=== PATIENT | female | born 1970 | race Caucasian/White ===

== ENCOUNTER 2017-11-30 12:15 | Emergency (ER) | payer OTHER ==
[2017-11-30] MEDS ORDERED: NS 0.9% 1000 ML* 1,000 ML IV ONE (14:44)
[2017-11-30 15:02] LABS: ABS Basophils 0 10^3/ul (0-0.2); ABS Eosinophils 0.5 10^3/ul (0-0.6); ABS Lymphocytes 0.7 10^3/ul (1.0-4.8); ABS Monocytes 0.7 10^3/ul (0-0.8); ABS Neutrophils 5.3 10^3/ul (1.5-7.7); ABS Nucleated RBC 0 10^3/ul; Eosinophil % 6.6 % (0-6); Hematocrit 40 % (35-47); Hemoglobin 14.1 g/dl (12.0-16.0); Lymphocyte % 9.9 % (25-47); Mean Corpuscular HGB Conc 35 g/dl (31-36); Mean Corpuscular Hemoglobin 37 pg (27-31); Mean Corpuscular Volume 105 fL (80-97); Mean Platelet Volume 8.8 um3 (7.4-10.4); Nucleated Red Blood Cells % 0.1; Platelet Count 165 10^3/ul (150-450); Red Cell Distribution Width 14 % (10.5-15); White Blood Count 7.2 10^3/ul (3.5-10.8)
[2017-11-30 15:16] LABS: INR 1.01 (0.77-1.02)
[2017-11-30 15:21] LABS: EGFR Non-African American 87.9 (>60)
--- NOTE | 2017-11-30 15:36 | RAD ---
HISTORY: Chest tightness, dizziness COMPARISONS: December 05, 2009 VIEWS: 1: frontal portable view of the chest at 3:05 PM FINDINGS: LINES AND TUBES: None. CARDIOMEDIASTINAL SILHOUETTE: The cardiomediastinal silhouette is normal for portable technique. PLEURA: The costophrenic angles are sharp. No pleural abnormalities are noted. LUNG PARENCHYMA: The lungs are clear. ABDOMEN: The upper abdomen is clear. There is no subphrenic gas. BONES AND SOFT TISSUES: No bone or soft tissue abnormalities are noted. IMPRESSION: NO ACTIVE CARDIOPULMONARY DISEASE.
[2017-11-30] MEDS ORDERED: Ondansetron ODT TAB* 4 MG ONE (17:20)
[2017-11-30] MEDS ORDERED: Ondansetron ODT TAB* 4 MG PO ONE (17:22)
[2017-11-30] MEDS ORDERED: Al Hydrox/Mg Hydrox/Simet LIQ* 30 ML UDC PO ONE (17:34)
--- NOTE | 2017-11-30 17:41 | ED ---
Kala Culp Tenzin, scribed for Cristian Landrum MD on 11/30/17 at 1502 . Complex/Multi-Sys Presentation - HPI Summary HPI Summary: Pt is a 47 y/o F presenting to ED with c/o tightness around the chest and throat since this morning. She was diagnosed with trichomoniasis a few days ago and she was started on Flagyl two days ago. She was put on Effexor last month. Yesterday, she had a abdominal discomfort and HERNÁNDEZ. She also complains of vaginal discharge. Today, she developed symptoms of dizziness upon standing, malaise, nausea, burning eyes, body aches, and joint aches. She also reports diffuse lower abd pain. Pt denies fever, cough, vomiting, diarrhea, and dysuria. - History Of Current Complaint Chief Complaint: EDAllergicReaction Time Seen by Provider: 11/30/17 14:33 Hx Obtained From: Patient Onset/Duration: Still Present Timing: Constant Severity Currently: Mild Severity Initially: Mild Character: Pressure - around her chest and throat Alleviating Factor(s): couple burped helped her with the tightness pressure she was feeling in her chest Associated Signs And Symptoms: Positive: Abdominal Pain, Back Pain - Allergies/Home Medications Allergies/Adverse Reactions: Allergies Allergy/AdvReac Type Severity Reaction Status Date / Time MS Latex [Latex] Allergy Rash Verified 11/30/17 12:39 AN ANTIPRESSANT Allergy Unknown Uncoded 11/30/17 12:39 Reaction Details Home Medications: Home Medications ALPRAZolam TAB* [Xanax TAB*] 0.25 - 0.5 mg PO BID PRN 11/30/17 [History Confirmed 11/30/17] Cevimeline(NF) [Evoxac(NF)] 30 mg PO DAILY 11/30/17 [History Confirmed 11/30/17] Cod Liver Oil 1 cap PO DAILY 11/30/17 [History Confirmed 11/30/17] Multivitamins/Minerals TAB* [Theragran/minerals TAB*] 1 tab PO DAILY 11/30/17 [ History Confirmed 11/30/17] ValACYclovir (*) [Valtrex 500 mg (*)] 500 mg PO DAILY 11/30/17 [History Confirmed 11/30/17] Venlafaxine EXT RELEASE CAP* [Effexor Xr CAP*] 37.5 mg PO DAILY 11/30/17 [ History Confirmed 11/30/17] metroNIDAZOLE TAB* [Flagyl 250 mg TAB*] 500 mg PO BID 11/30/17 [History Confirmed 11/30/17] PMH/Surg Hx/FS Hx/Imm Hx GI History: Reports: Hx Gastroesophageal Reflux Disease - MINOR Sensory History: Reports: Hx Contacts or Glasses - GLASSES Denies: Hx Hearing Aid Opthamlomology History: Reports: Hx Contacts or Glasses - GLASSES Psychiatric History: Reports: Hx Anxiety - Cancer History Hx Chemotherapy: No Hx Radiation Therapy: No - Surgical History Surgery Procedure, Year, and Place: BREAST AUGMENTATION 1998. WISDOM TEETH REMOVAL Hx Anesthesia Reactions: No Infectious Disease History: No Infectious Disease History: Denies: Traveled Outside the [place] in Last 30 Days - Family History Known Family History: Positive: Hypertension - Social History Alcohol Use: Daily Alcohol Amount: 1 GLASS WINE/NIGHT Substance Use Type: Reports: None Smoking Status (MU): Never Smoked Tobacco Review of Systems Positive: Chills Negative: Sore Throat Positive: Chest Pain - tightness and pressure Negative: Shortness Of Breath, Cough Positive: Abdominal Pain - diffusive tightness around the center and lower abd, Nausea. Negative: Vomiting Positive: discharge. Negative: burning Positive: Myalgia - legs, back and overall body in general Positive: Headache, Weakness All Other Systems Reviewed And Are Negative: Yes Physical Exam - Summary Physical Exam Summary: General: well-appearing, no pain distress Skin: warm, color reflects adequate perfusion, dry Head: normal Eyes: EOMI, EDMOND ENT: normal Neck: supple, nontender Respiratory: CTA, breath sounds present Cardiovascular: RRR Abdomen: soft, nontender Bowel: present Musculoskeletal: normal, strength/ROM intact Neurological: sensory/motor intact, A&O x3 Psychological: affect/mood appropriate Triage Information Reviewed: Yes Vital Signs On Initial Exam: Initial Vitals Temp Pulse Resp BP Pulse Ox 98.4 F 74 18 112/68 97 11/30/17 12:33 11/30/17 12:33 11/30/17 12:33 11/30/17 12:33 11/30/17 12:33 Vital Signs Reviewed: Yes Diagnostics - Vital Signs Vital Signs Temp Pulse Resp BP Pulse Ox 11/30/17 12:33 98.4 F 74 18 112/68 97 - Laboratory Lab Results: Lab Results 11/30/17 11/30/17 11/30/17 Range/Units 14:52 14:52 14:52 WBC 7.2 (3.5-10.8) 10^3/ul RBC 3.80 L (4.0-5.4) 10^6/ul Hgb 14.1 (12.0-16.0) g/dl Hct 40 (35-47) % MCV 105 H (80-97) fL MCH 37 H (27-31) pg MCHC 35 (31-36) g/dl RDW 14 (10.5-15) % Plt Count 165 (150-450) 10^3/ul MPV 8.8 (7.4-10.4) um3 Neut % (Auto) 74.2 (38-83) % Lymph % (Auto) 9.9 L (25-47) % [place] % (Auto) 9.1 H (0-7) % Eos % (Auto) 6.6 H (0-6) % Baso % (Auto) 0.2 (0-2) % Absolute Neuts (auto) 5.3 (1.5-7.7) 10^3/ul Absolute Lymphs (auto) 0.7 L (1.0-4.8) 10^3/ul Absolute Monos (auto) 0.7 (0-0.8) 10^3/ul Absolute Eos (auto) 0.5 (0-0.6) 10^3/ul Absolute Basos (auto) 0 (0-0.2) 10^3/ul Absolute Nucleated RBC 0 10^3/ul Nucleated RBC % 0.1 INR (Anticoag Therapy) (0.77-1.02) APTT (26.0-36.3) seconds D-Dimer, Quantitative (Less Than 230) ng/mL Sodium 138 L (139-145) mmol/L Potassium 3.9 (3.5-5.0) mmol/L Chloride 103 (101-111) mmol/L Carbon Dioxide 27 (22-32) mmol/L Anion Gap 8 (2-11) mmol/L BUN 9 (6-24) mg/dL Creatinine 0.71 (0.51-0.95) mg/dL Est GFR ( Amer) 113.0 (>60) Est GFR (Non-Af Amer) 87.9 (>60) BUN/Creatinine Ratio 12.7 (8-20) Glucose 87 (70-100) mg/dL Lactic Acid 0.6 (0.5-2.0) mmol/L Calcium 9.3 (8.6-10.3) mg/dL Magnesium 1.8 L (1.9-2.7) mg/dL Total Bilirubin 0.90 (0.2-1.0) mg/dL AST 18 (13-39) U/L ALT 10 (7-52) U/L Alkaline Phosphatase 31 L (34-104) U/L Total Creatine Kinase 59 (10-223) U/L CK-MB (CK-2) 0.9 (0.6-6.3) ng/mL Troponin I 0.00 (<0.04) ng/mL C-Reactive Protein 6.94 H (< 5.00) mg/L Total Protein 7.6 (6.4-8.9) g/dL Albumin 4.5 (3.2-5.2) g/dL Globulin 3.1 (2-4) g/dL Albumin/Globulin Ratio 1.5 (1-3) Lipase 37 (11.0-82.0) U/L TSH 2.82 (0.34-5.60) mcIU/mL Beta HCG, Quant 0.86 mIU/mL 11/30/17 Range/Units 14:53 WBC (3.5-10.8) 10^3/ul RBC (4.0-5.4) 10^6/ul Hgb (12.0-16.0) g/dl Hct (35-47) % MCV (80-97) fL MCH (27-31) pg MCHC (31-36) g/dl RDW (10.5-15) % Plt Count (150-450) 10^3/ul MPV (7.4-10.4) um3 Neut % (Auto) (38-83) % Lymph % (Auto) (25-47) % [place] % (Auto) (0-7) % Eos % (Auto) (0-6) % Baso % (Auto) (0-2) % Absolute Neuts (auto) (1.5-7.7) 10^3/ul Absolute Lymphs (auto) (1.0-4.8) 10^3/ul Absolute Monos (auto) (0-0.8) 10^3/ul Absolute Eos (auto) (0-0.6) 10^3/ul Absolute Basos (auto) (0-0.2) 10^3/ul Absolute Nucleated RBC 10^3/ul Nucleated RBC % INR (Anticoag Therapy) 1.01 (0.77-1.02) APTT 30.5 (26.0-36.3) seconds D-Dimer, Quantitative 218 (Less Than 230) ng/mL Sodium (139-145) mmol/L Potassium (3.5-5.0) mmol/L Chloride (101-111) mmol/L Carbon Dioxide (22-32) mmol/L Anion Gap (2-11) mmol/L BUN (6-24) mg/dL Creatinine (0.51-0.95) mg/dL Est GFR ( Amer) (>60) Est GFR (Non-Af Amer) (>60) BUN/Creatinine Ratio (8-20) Glucose (70-100) mg/dL Lactic Acid (0.5-2.0) mmol/L Calcium (8.6-10.3) mg/dL Magnesium (1.9-2.7) mg/dL Total Bilirubin (0.2-1.0) mg/dL AST (13-39) U/L ALT (7-52) U/L Alkaline Phosphatase (34-104) U/L Total Creatine Kinase (10-223) U/L CK-MB (CK-2) (0.6-6.3) ng/mL Troponin I (<0.04) ng/mL C-Reactive Protein (< 5.00) mg/L Total Protein (6.4-8.9) g/dL Albumin (3.2-5.2) g/dL Globulin (2-4) g/dL Albumin/Globulin Ratio (1-3) Lipase (11.0-82.0) U/L TSH (0.34-5.60) mcIU/mL Beta HCG, Quant mIU/mL Result Diagrams: 11/30/17 14:52 11/30/17 14:52 Lab Statement: Any lab studies that have been ordered have been reviewed, and results considered in the medical decision making process. - Radiology CXR Xray Interpretation: No Acute Changes Radiology Interpretation Completed By: ED Physician - No acute cardiopulmonary disease. Dr. Landrum interpreted the report. - EKG 14:54 Cardiac Rate: NL - 64 bpm EKG Rhythm: Sinus Rhythm ST Segment: Normal Ectopy: None Complex Multi-Symp Course/Dx Course Of Treatment: DISCUSSED RESULTS WITH PATIENT. SX MOST LIKELY DUE TO METRONIDAZOLE. DISCUSSED FINISHING THE 7 DAYS OF METRONIDAZOLE 500MG PO BID OR TAKING A SINGLE DOSE OF 2 GRAMS ONCE. F/U PMD; RETURN IF WORSE. - Diagnoses Provider Diagnoses: Nausea, Chest pain Discharge - Sign-Out/Discharge Documenting (check all that apply): Discharge/Admit/Transfer - Discharge Plan Condition: Stable Disposition: HOME Prescriptions: Ondansetron ODT TAB* [Zofran 4 MG Odt TAB*] 4 mg PO Q6H PRN #10 tab.odt PRN Reason: Nausea Patient Education Materials: Chest Pain (ED) Referrals: Sd Zabala MD [Primary Care Provider] - Additional Instructions: FOLLOW UP WITH YOUR DOCTOR. TAKE ZOFRAN DIRECTED NEEDED FOR NAUSEA. RETURN TO THE EMERGENCY DEPARTMENT FOR ANY WORSENING OF YOUR CONDITION OR QUESTIONS OR CONCERNS. - Billing Disposition and Condition Condition: STABLE Disposition: HOME The documentation as recorded by the Kala zee Tenzin accurately reflects the service I personally performed and the decisions made by , rCistian Landrum MD.
[2017-11-30 18:12] VITALS: BP 123/76
== END 2017-11-30 18:33 | disposition home or self-care (01) ==
LOC: ED 12:15
DX: R07.9 Chest pain, unspecified (principal); R11.0 Nausea; R10.9 Unspecified abdominal pain; M54.9 Dorsalgia, unspecified
CPT/HCPCS: 36415; 71045; 80053; 82550; 82553; 83605; 83690; 83735; 84443; 84484; 84702; 85025; 85379; 85610; 85730; 86140; 93005; 99284; A9270-GY

== ENCOUNTER 2018-01-31 11:29 | Emergency (ER) | payer OTHER ==
[2018-01-31 11:49] VITALS: BP 120/79
--- NOTE | 2018-01-31 12:04 | ED ---
Throat Pain/Nasal Congestion - HPI Summary HPI Summary: This patient is a 47 year old F presenting to [facility] with a chief complaint of worsening left jaw pain and left facial numbness that started a week ago. The patient rates the pain 2/10 in severity. Patient reports HERNÁNDEZ, jaw pain, numbness , muscle twitches around the mouth, dry eyes, and feeling generally tired. Patient denies rhinorrhea and cough. Pt does not believe she was bitten by a tick recently. Pt gets regular Botox injections, with the most recent being 3 months ago. Pt has not seen these symptoms before. Pt currently takes Evoxac for dry eyes. Rx Valtrex and Effexor. Pt has seen an ENT doctor in the past. - History of Current Complaint Chief Complaint: EDGeneral Time Seen by Provider: 01/31/18 11:38 Hx Obtained From: Patient Onset/Duration: Gradual Onset, Lasting Days - Started a week ago, numbness started today Severity: Moderate Cough: None Related History: Other (Noted In Comments) - Botox - Allergies/Home Medications Allergies/Adverse Reactions: Allergies Allergy/AdvReac Type Severity Reaction Status Date / Time latex Allergy Rash Verified 01/31/18 11:46 AN ANTIPRESSANT Allergy Unknown Uncoded 01/31/18 11:46 Reaction Details PMH/Surg Hx/FS Hx/Imm Hx GI History: Reports: Hx Gastroesophageal Reflux Disease - MINOR Sensory History: Reports: Hx Contacts or Glasses - GLASSES Denies: Hx Hearing Aid Opthamlomology History: Reports: Hx Contacts or Glasses - GLASSES EENT History: Denies: Hx Deafness Psychiatric History: Reports: Hx Anxiety - Cancer History Hx Chemotherapy: No Hx Radiation Therapy: No - Surgical History Surgery Procedure, Year, and Place: BREAST AUGMENTATION 1998. WISDOM TEETH REMOVAL Hx Anesthesia Reactions: No Infectious Disease History: No Infectious Disease History: Denies: Traveled Outside the [place] in Last 30 Days - Family History Known Family History: Positive: Hypertension - Social History Alcohol Use: Daily Alcohol Amount: 1 GLASS WINE/NIGHT Substance Use Type: Reports: None Smoking Status (MU): Never Smoked Tobacco Review of Systems Positive: Fatigue ENT: Other - reported dysesthesia of the upper lip Positive: Other - Dry eyes. Negative: Nasal Discharge Negative: Cough Negative: Abdominal Pain Positive: Other - jaw pain Positive: Headache, Numbness - left side of face Positive: Anxious All Other Systems Reviewed And Are Negative: Yes Physical Exam - Summary Physical Exam Summary: Appearance: No pain distress. Skin: warm, dry, reflects adequate perfusion Head/face: Flattening of the forehead due to Botox. Reported dysesthesia of the upper lip. Smile asymmetry. Minor ptosis. Eyes: EOMI, EDMOND ENT: injection and a dark line through the TM. Small exudative effusion in the middle of the eardrum. Neck: supple, non-tender Respiratory: CTA, breath sounds present Cardiovascular: RRR, pulses symmetrical Abdomen: non-tender, soft Bowel Sounds: present Musculoskeletal: normal, strength/ROM intact Neuro: normal, sensory motor intact, A&Ox3 Triage Information Reviewed: Yes Vital Signs On Initial Exam: Initial Vitals Temp Pulse Resp BP Pulse Ox 98.8 F 68 18 123/71 100 01/31/18 11:30 01/31/18 11:30 01/31/18 11:30 01/31/18 11:30 01/31/18 11:30 Vital Signs Reviewed: Yes Diagnostics - Vital Signs Vital Signs Temp Pulse Resp BP Pulse Ox 01/31/18 11:47 65 100 01/31/18 11:46 65 120/79 100 01/31/18 11:40 65 140/84 100 01/31/18 11:30 98.8 F 68 18 123/71 100 - Laboratory Lab Statement: Any lab studies that have been ordered have been reviewed, and results considered in the medical decision making process. EENT Course/Dx - Course Course Of Treatment: Patient presents with left-sided facial deficit including mild ptosis and asymmetry of smiled. The forehead is not relevant given that she has Botox throughout it. She also has had dysesthesia and discomfort in the face preceding this. 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 Increased her dose of Valtrex, added steroids and doxycycline for possibility of Lyme disease. Lyme serology was obtained here. She'll follow up closely with ear nose and throat. Lacri-Lube was given to use at night. - Differential Diagnoses Differential Diagnoses: Other - CVA, TIA, Fleming's palsy - Diagnoses Provider Diagnoses: Fleming's palsy Discharge - Sign-Out/Discharge Documenting (check all that apply): Patient Departure - Discharge - Discharge Plan Condition: Improved Disposition: HOME Prescriptions: Artificial Tear OPHTH.OINT* [Lacrilube OINT*] 1 applic LEFT EYE BEDTIME #2 tube DOXYcycline CAP(*) [DOXYcycline 100MG CAP(*)] 100 mg PO BID #28 cap predniSONE [Prednisone 20 MG TAB] 40 mg PO DAILY #14 tablet ValACYclovir (*) [Valtrex 1 GM(*)] 1 gm PO TID #21 tab Patient Education Materials: Fleming Palsy (ED) Referrals: Olegario Novoa MD [Medical Doctor] - Sd Zabala MD [Primary Care Provider] - Additional Instructions: Call to follow-up with the ear nose and throat surgeon tomorrow. I have your doctor recheck you earlier in the week also. Return if worse, new symptoms or other concerns. Do not get Botox while you have these symptoms. Use artificial tears throughout the day the affected left eye. - Billing Disposition and Condition Condition: IMPROVED Disposition: Home
== END 2018-01-31 12:03 | disposition home or self-care (01) ==
LOC: ED 11:29
DX: G51.0 Bell's palsy (principal); Z88.8 Allergy status to other drugs, medicaments and biological substances
CPT/HCPCS: 86617; 86618; 99282

== ENCOUNTER 2018-02-06 13:59 | Emergency (ER) | payer OTHER ==
--- OUTSIDE RECORDS SUMMARY | 2018-02-06 14:53 | XMS REPORT ---
:1970 External Reference #:[id number] Author Organization [facility] Address [address] [place] [address] Phone [phone] Care Team Providers Name Role Phone Sd Zabala M.D. Primary Care Physician Unavailable Payers Type Date Identification Numbers Payment Provider Subscriber Commercial Policy Number: [id number] [employer] Ppo/Pos/Epo/Nap [employer] Group Number: [id number] [id number] PayID: [id number] [place] [address] Problems Date Description Provider Status Onset: Rosacea Active Onset: Hiatal hernia Active Onset: Sjogren's syndrome Active Onset: Herpes simplex keratitis Active Onset: Anxiety Active Onset: Fleming's palsy Active Onset: Lyme disease Active Onset: 02/05/2018 Tear film insufficiency Smitha Marshall O.D. Active Onset: 02/05/2018 Punctate keratitis Smitha Marshall O.D. 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 Employment ETOH Use Occasionally consumes alcohol Smoking Patient has never smoked Recreational Drug Use Denies Drug Use Daily Caffeine Consumes on average 2 cups of regular coffee per day Allergies, Adverse Reactions, Alerts Date Description Reaction Status Severity Comments 02/05/2018 NKDA active Medications Medication Date Status Form Strength Qnty SIG Indications Ordering Provider Evoxac Active Capsules 30mg daily Unknown 000 Xanax Active Tablets 0.25mg 1-2 Unknown [address] daily [address]cycline Active Capsules DR 40mg 1 by Unknown 000 mouth every day Prednisone Active Tablets 5mg 2 daily Unknown 000 Valtrex Active Tablets 1gm 1 GM Unknown 000 three times a day Multi Vitamin Active Tablets daily Unknown 000 B12 Folate Active Capsules 800-800mcg daily Unknown 000 B6 Natural Active Tablets 100mg daily Unknown 000 Zinc Active Capsules 30mg daily Unknown 000 Hyaluronic Active daily Unknown Acid 000 Benadryl Active Tablets 25mg as Unknown Allergy 000 needed Systane Active Gel 0.4-0.3% 1 drop Unknown 000 both eyes twice a day Systane Active Solution 0.4-0.3% as Unknown 000 needed Vital Signs Date Vital Result Comment 02/05/2018 BP Systolic 119 mmHg BP Diastolic 69 mmHg Results Description No Information Procedures Date CPT Code Description Status 03/23/2015 605 Cleaning Cloth Completed 03/23/2015 519 Eyeglass It Analyst Completed 05/09/2014 78139 Est Patient Intermediate Exam Completed 01/23/2014 76456 Determination Of Refractive State Completed 01/23/2014 43701 Est Patient Comprehensive Exam Completed 01/23/2014 101 Level 1 SCL Fit/Refit Completed 08/08/2011 61476 Determination Of Refractive State Completed 08/08/2011 01096 Est Patient Comprehensive Exam Completed 08/08/2011 201 Refit - No Change In Fit Completed 03/11/2010 07739 Visual Field Exam Extended Completed 03/04/2010 48013 Determination Of Refractive State Completed 03/04/2010 27038 Est Patient Comprehensive Exam Completed 03/04/2010 201 Refit - No Change In Fit Completed 03/01/2010 96084 Close Lacrimal Punctum, Plug Completed 08/15/2009 33031 Est Patient Intermediate Exam Completed 08/01/2009 03071 Close Lacrimal Punctum, Plug Completed 06/27/2009 16468 Est Patient Intermediate Exam Completed 10/20/2008 98230 Determination Of Refractive State Completed 10/20/2008 58624 Est Patient Comprehensive Exam Completed 10/20/2008 201 Refit - No Change In Fit Completed 02/12/2007 99887 Determination Of Refractive State Completed 02/12/2007 45425 Est Patient Comprehensive Exam Completed 02/12/2007 202 Refit SCL Completed 12/29/2006 85954 Close Lacrimal Punctum, Plug Completed 12/29/2006 39687 Close Lacrimal Punctum, Plug Completed 09/16/2006 80412 Est Patient Intermediate Exam Completed Encounters Type Date Location Provider CPT E/M Dx Office Visit 12/17/2011 10:30a [place], [place] [address] 373.12 pc Office Visit 03/11/2010 11:10a Chet Enrique MD, Smitha Marshall, 88447 V58.69 pc O.D. 710.2 Office Visit 08/24/2009 10:40a Chet Enrique MD, Smitha Marshall, 21709 370.20 pc O.D. Office Visit 08/15/2009 3:20p Chet Enrique MD, Smitha Marshall, 74251 370.20 pc O.D. Office Visit 07/04/2009 3:10p Chet Enrique MD, Smitha Marshall, 19039 370.40 pc O.D. Office Visit 02/02/2007 1:30p Chet Enrique MD, Chet Enrique M.D. 75792 375.15 pc Office Visit 12/18/2006 2:15p Chet Enrique MD, Chet Enrique M.D. 61354 375.15 pc Plan of Care 02/05/2018 - Smitha Marshall O.D.H16.142 Punctate keratitis, left eyeComments:continue to use systane gel at bedtime at systane drops during the dayFollow up:1 Week Follow Up / MR/Cl fit At your next visit, we are not planning to dilate your eyes. However, if you have any changes in your vision or new symptoms, there are certain situations that require us to dilate your eyes. If Dr. Marshall requests any additional testing, that may require extra time. Ifyou have any questions before your next appointment, please call our office at .H04.123 Dry eye syndrome of bilateral lacrimal kctubdT67.0 Fleming's xhnvlF68.01 Sicca syndrome with upbalfejyzehoaloriqoK58.20 Lyme disease, unspecified
--- OUTSIDE RECORDS SUMMARY | 2018-02-06 14:53 | XMS REPORT ---
:1970 External Reference #:[id number] Author Organization [facility] Address [address] [place] [address] Phone [phone] Care Team Providers Name Role Phone Sd Zabala M.D. Care Team Information Remote Computer Terminal Operator Unavailable Sd Zabala M.D. 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 Cigarette Use Never Smoked Cigarettes Cigars current.no Pipe current.no Smokeless Tobacco current.no ETOH Use Negative For Current Alcohol Use [Current Alcohol Use] Allergies, Adverse Reactions, Alerts Date Description Reaction Status Severity Comments 06/04/2010 Sonata V-Tach active 06/04/2010 Zoloft night sweats, increased thirst active 02/04/2018 Latex active Medications Medication Date Status Form Strength Qnty SIG Indications Ordering Provider Xanax / Active Tablets 0.25mg 1tabs take 30 Unknown 0000 minutes before mri Multivitamins 00/00/ Active Unknown 0000 Doxycycline 0000/ Active Capsules 100mg take 1 Unknown Hyclate 0000 capsule by mouth twice a day Prednisone / Active Tablets 20mg take 2 Unknown 0000 tablets by mouth once daily with food Valacyclovir / Active Tablets 1gm take 1 Unknown HCL 0000 tablet by mouth three times a day Alprazolam / Active Tablets 0.25mg take 1 to 2 Unknown 0000 tablets by mouth twice a day if needed [id number] / Active Chewtabs 1mg daily Unknown 0000 B6 Natural / Active Tablets 100mg daily Unknown 0000 Evoxac 00/ Active Capsules 30mg 1 tab daily Unknown 0000 Plaquenil /00/ Hx Tablets 200mg Unknown - 2017 Trazodone HCL /00/ Hx Tablets 50mg Unknown - 2017 Ambien 00/ Hx Tablets 10mg 30tabs 10 mg p.o. Unknown 0000 - q.h.s. 2017 Cod Liver Oil /00/ Hx Unknown - 2017 Evoxac /00/ Hx Unknown 2017 Valtrex / Hx Tablets 500mg Unknown 2017 Lizzie / Hx Tablets 3-0.02mg Unknown 2017 Genteal Gel /00/ Hx Unknown - 2017 Provigil / Hx Tablets 200mg Unknown 2009 Nexium / Hx Capsules 40mg 60caps 1 po bid - Unknown 0000 - DR bid dosing 2018 indicated for her needs Cevimeline HCL / Hx Capsules 30mg take 1 Unknown 0000 - capsule by 02/04/ mouth twice 2018 a day Vital Signs Date Vital Result Comment 02/04/2018 Weight 140.00 lb Weight in kg's 63.504 Height 67 inches 5'7" Height in cm's 170.2 cm BMI (Body Mass Index) 21.9 kg/m2 06/04/2010 BP Systolic 131 mmHg BP Diastolic 78 mmHg Heart Rate 81 /min Respiratory Rate 16 /min Results Description No Information Procedures Date CPT Code Description Status 07/09/2010 52116 Tympanometry Completed 07/09/2010 07968 Comprehensive Audiogram Completed Encounters Type Date Location Provider CPT E/M Dx Office Visit 02/04/2018 3:45p [place],After 07/20/07 [place] [address] G51.0 Office Visit 07/09/2010 3:00p [place],After 07/20/07 Chet Mckinney 23515 388.72 Eric Miner 723.9 780.2 386.2 388.31 279.4 Office Visit 07/05/2010 9:15a [place],After 07/20/07 Chet Miner, 97778 787.20 MDejuan 530.9 710.2 Office Visit 06/04/2010 11:00a [place],After 07/20/07 Chet Miner, 28796 787.24 MDejuan 710.2 787.22 Plan of Care 02/04/2018 - SEBASTIÁN Duke51.0 Fleming's palsyComments:left-sided facial paralysis one week's duration. No evidence of middle ear pathology no palpable abnormality of the salivary gland rest of the cranial nerve function normallyIf there is persistent facial paralysis greater than 3 weeks patient would benefit from an MRI with contrast
--- OUTSIDE RECORDS SUMMARY | 2018-02-06 14:54 | XMS REPORT ---
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 Active Onset: 05/02/2010 Gastroesophageal reflux disease Ez Gray M.D. Active Onset: 05/02/2010 Depressive disorder Ez Gray M.D. Active Onset: 05/02/2010 Collagen disease Ez Gray M.D. Active Onset: 11/12/2011 Disorder of eyelid Sd Zabala M.D. Active Onset: 11/15/2011 Yeny Gusman M.D. Active Onset: 04/26/2015 Insomnia Sd Zabala M.D. Active Onset: 04/26/2015 Excessive and frequent menstruation Sd Zabala M.D. Active Family History Date Family Member(s) Problem(s) Comments Father hypertension, hypercholesterolemia Mother hypertension, hypothyroidism, hypercholesterolemia Number of Children G-2, P-2 First Daughter Unremarkable Second Daughter Unremarkable Number of Siblings Siblings: 4 One sister has depression3 other sisters without health problems Paternal Grandfather due to COPD () - 60's Paternal Grandmother due to Breast Cancer () - with mets. 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 [employer] Cigarette Use Nonsmoker ETOH Use Occasional Smoking Patient has never smoked Daily Caffeine Some Caffeine Exercise Type/Frequency Current Exercises regularly, runs 2 days a week Allergies, Adverse Reactions, Alerts Date Description Reaction Status Severity Comments 09/26/2008 Sonata heart fluttering active 01/14/2010 Sertraline night sweats, thirst active Medications Medication Date Status Form Strength Qnty SIG Indications Ordering Provider Valacyclovir HCL Active Tablets 1gm take 1 N73.9 Marianne 018 tablet by MARITZA Hamlin mouth three times daily for 7 days B00.2 A60.9 Effexor XR 11/24/2017 Active Caps ER 24HR 37.5mg 30caps Take one N95.1 Salome Karina by mouth at [facility], SCIENTIFIC SOFTWARE DEVELOPER night Xanax 04/20/2008 Active Tablets 0.25mg 120tabs 1-2 by F41.1 Sd King mouth tabs Eric Zabala by mouth twice a day as needed F41.3 F41.9 Multivitamins Active Tablets 1 po qd Unknown Fish Oil Active Capsules 1000 1 po qd Unknown mg Evoxac Active Capsules 30mg 60ca take one M35 Sd King ps capsule by .Joanna Zabala M.D. mouth twice a day Doxycycline Active Tablets 100m one tab by Unknown Hyclate g mouth twice a day Prednisone Active Tablets 20mg take 2 by mouth Unknown as one dose daily until gone Metronidazole 11/28/2017 - Hx Tablets 500m 14ta take 1 tablet Marilin 12/02/2017 g bs twice a day for Lizet, HYPERTRICHOLOGIST 7 days Monistat 7 Simply 08/13/2016 - Hx Cream 2% 1Box intravaginal Marianne Cure 07/21/2017 Marlena application MARITZA Hamlin tmen every night x 7 days Fluconazole 05/05/2015 - Hx Tablets 150m 1tab 1 by mouth x 1 Miesha 05/06/2015 g s Brown, SCIENTIFIC SOFTWARE DEVELOPER Silenor 04/26/2015 - Hx Tablets 3mg 30ta 1 by mouth at G47 Sd A. 04/26/2015 bs bedtime .00 Eric Zabala Doxepin HCL 04/26/2015 - Hx Capsules 10mg 90ca take as G47 Sd A. 05/02/2015 ps directed by .00 Eric Zabala physician at bedtime for sleep; start with 10 mg at bedtime and increase as directed Valacyclovir HCL 07/25/2013 - Hx Tablets 500m 60ta take one tablet N73 Marianne 02/02/2018 g bs by mouth twice .9 MARITZA Hamlin a day B00.2 A60.9 Medrol Dosepak 05/25/2013 - Hx Tablets 4mg 1pk take as Marianne 01/05/2014 directed MARITZA Hamlin Zolpidem 09/20/2012 - Hx Tablets 5mg 60tabs 1 -2 by mouth G47.0 Sd A. Tartrate 04/26/2015 every night at 0 Darcatherine, bedtime as M.D. needed Tamiflu 07/26/2012 - Hx Capsules 75mg 10caps 1 po qd x 10 Sd A. 08/05/2012 days Eric Zabala Mupirocin 05/13/2012 - Hx Ointment 2% 22gm apply small Kely 09/21/2012 amount to ronald Rivera, tid x 5 days Afnp-C Zithromax 01/30/2012 - Hx Tablets 250mg 6Tabs 2 po qd Marilin calvin 05/12/2012 then 1 po qd Lizet, times 4 HYPERTRICHOLOGIST Minocycline HCL 01/17/2012 - Hx Capsules 50mg 30caps take one L70.0 Marianne 11/24/2017 capsule by Yakelin mouth at [facility] bedtime Gentamicin 11/15/2011 - Hx Ointment 0.3% 50unit apply small 373.2 Danielle M. Sulfate 01/05/2014 s amount to LaFace, Opthalmic lesion bid for M.D. 1 week Benefiber 11/26/2010 - Hx Chewtabs Sd King 07/17/2011 Eric Zabala Prednisone 11/26/2010 - Hx Tablets 10mg 19tabs 4 po x 2 days, 723.1 Sd King 12/03/2010 then 3 po x 2 Darlow, days, then 2 po M.D. x 2 days,then 1 po x 1 day Soma 11/26/2010 - Hx Tablets 350mg 40tabs 1 po tid prn 723.1 Sd King 07/17/2011 muscle spasm Eric Zabala Physical 11/26/2010 - Hx craniosacral 723.1 Sd King Therapy 12/08/2010 treatment and Sagrario evaluation neck Eric pain Charito 28 07/09/2010 - Hx Tablets 3-0.03 1month take one tablet V72.3 Marianne 12/07/2014 mg by mouth every 1 Yakelin, day as directed HYPERTRICHOLOGIST Hydrocodone/Yang 07/08/2010 - Hx Tablets 5-500m 40tabs 1 po before bed 388.9 Lo A. taminophen 11/26/2010 g or q4-6h prn Eric Umaña pain Gianvi 07/04/2010 - Hx Tabs 3-0.02 28tabs Take as Sd King 11/26/2010 mg Directed Eric Zabala Skelaxin 05/02/2010 - Hx Tablets 800mg 40tabs 1 tid prn Ez Montes 06/03/2010 muscle spasm Eric Gray Nexium 01/15/2010 - Hx Capsules DR 40mg 30caps 1 po bid Sd King 11/26/2010 Eric Zabala Pantoprazole 01/14/2010 - Hx 40mg 90unit 1 po qd 530.8 Sd King 01/15/2010 s 1 Eric Zabala Doxycycline 01/14/2010 - Hx Tablets 50mg 7tabs dissolve in 528.9 Sd A. Monohydrate 01/21/2010 glass of water Darlow, and rinse/spit Jacy.DNoemi four times a day as directed Pristiq 01/14/2010 - Hx Tablets ER 50mg 30tabs 1 qd 311 Sd King 11/26/2010 24HR Eric Zabala Provigil 12/05/2009 - Hx Tablets 200mg 30tabs 1 qd Sd King 07/08/2010 Eric Zabala Trazodone HCL 09/05/2009 - Hx Tablets 50mg 120tab Take 3-4 530.8 Sd ANoemi 01/05/2014 s Tablets By 1 Sagrario Mouth AT M.DNoemi Bedtime 780.52 Tamiflu 05/22/2009 - Hx Capsules 75mg 10caps 1 po bid for 5 465.9 Lo ANoemi 09/05/2009 days Eric Umaña Flagyl 04/20/2009 - Hx Capsules 375mg 14caps 1 po bid x 7d Ro 04/20/2009 Eugenio Perdue Ambien 04/20/2009 - Hx Tablets 10mg 30tabs 1 po q hs prn Sd King 09/20/2012 call nt Eric Zabala Flagyl 04/20/2009 - Hx Tablets 250mg 1 po tid x 7 Ro 09/05/2009 days Eugenio Perdue Cleosin 03/05/2009 - Hx 3units 1 intravaginally 041.9 Marilin Ovules 05/02/2009 qhs x 3 nights Lizet, FNP Diflucan 11/15/2008 - Hx Tablets 150mg 2tabs 1 po times 1 Sd King 01/09/2009, november repeat kailee Zabala 5-7 days Eric Lizzie 10/23/2008 - Hx Tabs 3-0.02 28tabs Use as Directed Sd King 07/04/2010 mg Eric Zabala Zyprexa 10/12/2008 - Hx Tablets 2.5mg 1 po qhs 530.81 Sd ANoemi 10/23/2008 Eric Zabala Trazodone HCL 09/26/2008 - Hx Tablets 25mg 30tabs 1 tablet hs prn Sd King 12/20/2008 for sleep Eric Zabala Omeprazole 09/25/2008 - Hx Capsules 20mg 30caps 1 po qd 535.50 Sd A. 10/12/2008 DR Sagrario M.D. Sonata 09/25/2008 - Hx Capsules 10mg 30caps 1 po qhs prn 530.81 Sd A. 09/26/2008 sleep Eric Zabala Pen VK 09/19/2008 - Hx 500mg 20units 1 bid 462 Sd King 10/12/2008 Eric Zabala Xanax 09/11/2008 - Hx Tablets Sd A. 09/11/2008 Eric Zabala Sertraline 09/11/2008 - Hx 25mg 60units 1 po qd x 1 530.81 Sd ANoemi 10/12/2008 week, then Darlow, increase to 2 po M.D. qd if necessary Xanax 09/11/2008 - Hx Tablets 0.5mg 60tabs 1 bid as Sd King 04/20/2009 directed Eric Zabala sixty Diflucan 09/07/2008 - Hx Tablets 150mg 2tabs 1 po times 1 616.10 Sd A. 09/05/2009 day, november repeat Sagrario, in 5-7d M.D. Terazol 3 09/07/2008 - Hx Cream 0.8% 1Tube one 616.10 Kely 09/10/2008 applicatorful hs Miguel, x 3 days Afnp-C Klonopin 04/21/2008 - Hx Tablets 0.5mg 60tabs 1-2 po hs Marilin 09/07/2008 MARITZA Hinds Valtrex 04/20/2008 - Hx Tablets 500mg 60tabs Take One Tablet 616.9 Sd A. 07/25/2013 By Mouth Twice A Darlow, Day M.D. Compazine 03/22/2008 - Hx Tablets 5mg 12tabs 1-2 po q 6h prn 558.9 Marilin 04/20/2008 nausea/vomiting MARITZA Hinds Ambien 12/18/2007 - Hx Tablets 10mg 30tabs 1 po qhs prn 780.59 Ez TNoemi 09/07/2008 fitz Gray M.D. Cymbalta 06/08/2007 - Hx Capsules 60mg 1 po qd 530.81 Sd King 03/22/2008 Eric Zabala Restoril 05/25/2007 - Hx Capsules 15mg 30caps 1 qhs prn Sd King 12/28/2007 barb Zabala M.D. Cymbalta 05/20/2007 - Hx Capsules 30mg Samples 1 po qd 530.81 Sd King 06/08/2007 Eric Zabala Lunesta 05/20/2007 - Hx Tablets 3mg 30tabs 1 PO QHS 530.81 Sd King 05/25/2007 Eric Zabala Doxycycline 02/04/2007 - Hx Capsules 50mg 1 PO qd Family 12/28/2007 [facility] Cod Liver Oil - Hx Capsules 1 po qd Unknown 07/15/2016 Plaquenil - Hx Tablets 200mg 1 po bid Unknown 11/26/2010 Nexium - Hx Capsules 20mg 90caps 1 po qd Unknown 11/12/2011 Vitamin B-12 - Hx Tablets 1000mc 1 po qd Unknown 12/07/2014 g occassionally Vitamin D - Hx Capsules [id number] take 1 capsule Unknown (Ergocalcifer 07/21/2017 nit by mouth once ol) weekly for 12 weeks. Immunizations CPT Code Status Date Vaccine Lot # [id number] Given 05/02/2015 Influenza Vac, Quadrivalent, Slit Virus, Im [id number] Given 11/30/2013 MMR Virus Immunization [id number] Given 06/01/2013 Meningococcal Conjugate Vaccine,Serogroups For [id number] Intramuscular Use 98944 Given 05/19/2013 DO Not Use Split Influenza Virus Vaccine [id number] 58209 Given 05/12/2012 DO Not Use Split Influenza Virus Vaccine [id number] 45717 Given 02/02/2012 Tdap Tetanus, W Pertussis [id number] 71570 Given 02/17/2002 Tetanus And Diptheria Adult Preservative Free >7Yrs Vital Signs Date Vital Result Comment 02/02/2018 BP Systolic 100 mmHg BP Diastolic 68 mmHg Heart Rate 64 /min Body Temperature 98.3 F Respiratory Rate 18 /min Height 68 inches 5'8" Weight 140.00 lb BMI (Body Mass Index) 21.3 kg/m2 12/02/2017 BP Systolic 118 mmHg BP Diastolic 60 mmHg Heart Rate 64 /min Body Temperature 100.0 F Respiratory Rate 16 /min Height 68 inches 5'8" Weight 133.00 lb BMI (Body Mass Index) 20.2 kg/m2 11/24/2017 BP Systolic 100 mmHg BP Diastolic 60 mmHg Heart Rate 66 /min Body Temperature 98.4 F Respiratory Rate 18 /min Height 68 inches 5'8" Weight 133.00 lb BMI (Body Mass Index) 20.2 kg/m2 07/21/2017 BP Systolic 100 mmHg BP Diastolic 60 mmHg Heart Rate 56 /min Body Temperature 98.4 F Respiratory Rate 16 /min Height 68 inches 5'8" Weight 132.25 lb BMI (Body Mass Index) 20.1 kg/m2 07/15/2016 BP Systolic 100 mmHg BP Diastolic 60 mmHg Heart Rate 60 /min Body Temperature 98.5 F Respiratory Rate 16 /min Height 68 inches 5'8" Weight 130.00 lb BMI (Body Mass Index) 19.8 kg/m2 05/02/2015 BP Systolic 110 mmHg BP Diastolic 70 mmHg Heart Rate 60 /min Body Temperature 98.6 F Respiratory Rate 18 /min Height 68 inches 5'8" Weight 140.00 lb BMI (Body Mass Index) 21.3 kg/m2 04/26/2015 BP Systolic 102 mmHg BP Diastolic 72 mmHg Heart Rate 68 /min Body Temperature 98.0 F Height 68 inches 5'8" Weight 140.00 lb BMI (Body Mass Index) 21.3 kg/m2 12/07/2014 BP Systolic 100 mmHg BP Diastolic 60 mmHg Heart Rate 68 /min Body Temperature 98.6 F Respiratory Rate 16 /min Height 68 inches 5'8" Weight 142.38 lb BMI (Body Mass Index) 21.6 kg/m2 01/05/2014 BP Systolic 116 mmHg BP Diastolic 70 mmHg Heart Rate 60 /min Body Temperature 99.0 F Respiratory Rate 16 /min Height 68 inches 5'8" Weight 145.00 lb BMI (Body Mass Index) 22.0 kg/m2 05/19/2013 BP Systolic 110 mmHg BP Diastolic 66 mmHg Heart Rate 78 /min Body Temperature 98.4 F Height 68 inches 5'8" Weight 151.00 lb BMI (Body Mass Index) 23.0 kg/m2 09/21/2012 BP Systolic 100 mmHg BP Diastolic 58 mmHg Heart Rate 64 /min Body Temperature 98.1 F Respiratory Rate 16 /min Height 68 inches 5'8" Weight 145.00 lb BMI (Body Mass Index) 22.0 kg/m2 05/12/2012 BP Systolic 110 mmHg BP Diastolic 60 mmHg Heart Rate 64 /min Body Temperature 99.0 F Respiratory Rate 16 /min Height 68 inches 5'8" Weight 138.00 lb BMI (Body Mass Index) 21.0 kg/m2 11/15/2011 BP Systolic 110 mmHg BP Diastolic 72 mmHg Heart Rate 68 /min Body Temperature 98.4 F Height 68 inches 5'8" Weight 140.00 lb BMI (Body Mass Index) 21.3 kg/m2 11/12/2011 BP Systolic 104 mmHg BP Diastolic 64 mmHg Heart Rate 60 /min Body Temperature 98.9 F Respiratory Rate 16 /min Height 68 inches 5'8" Weight 140.00 lb BMI (Body Mass Index) 21.3 kg/m2 07/17/2011 BP Systolic 96 mmHg BP Diastolic 62 mmHg Heart Rate 78 /min Height 68 inches 5'8" Weight 151.00 lb BMI (Body Mass Index) 23.0 kg/m2 03/05/2011 BP Systolic 100 mmHg BP Diastolic 54 mmHg Heart Rate 60 /min Body Temperature 99.1 F Respiratory Rate 18 /min Weight 144.00 lb 11/26/2010 BP Systolic 102 mmHg BP Diastolic 64 mmHg Heart Rate 64 /min Body Temperature 99.1 F Respiratory Rate 16 /min Height 68 inches 5'8" Weight 136.00 lb BMI (Body Mass Index) 20.7 kg/m2 07/09/2010 BP Systolic 102 mmHg BP Diastolic 58 mmHg Heart Rate 72 /min Body Temperature 98.8 F Height 68 inches 5'8" Weight 130.00 lb BMI (Body Mass Index) 19.8 kg/m2 07/08/2010 BP Systolic 106 mmHg BP Diastolic 72 mmHg Heart Rate 54 /min Body Temperature 99.1 F Height 68 inches 5'8" Weight 130.00 lb BMI (Body Mass Index) 19.8 kg/m2 06/03/2010 BP Systolic 108 mmHg BP Diastolic 70 mmHg Heart Rate 68 /min Body Temperature 99.3 F Respiratory Rate 20 /min Height 68 inches 5'8" Weight 127.00 lb BMI (Body Mass Index) 19.3 kg/m2 05/02/2010 BP Systolic 116 mmHg BP Diastolic 62 mmHg Heart Rate 66 /min Body Temperature 99.6 F Height 68 inches 5'8" Weight 127.00 lb BMI (Body Mass Index) 19.3 kg/m2 02/13/2010 BP Systolic 118 mmHg BP Diastolic 72 mmHg Heart Rate 60 /min Body Temperature 99.1 F Respiratory Rate 16 /min Height 68 inches 5'8" Weight 130.00 lb BMI (Body Mass Index) 19.8 kg/m2 01/14/2010 BP Systolic 102 mmHg BP Diastolic 60 mmHg Heart Rate 64 /min Body Temperature 98.6 F Respiratory Rate 16 /min Height 68 inches 5'8" Weight 135.00 lb BMI (Body Mass Index) 20.5 kg/m2 12/12/2009 BP Systolic 98 mmHg BP Diastolic 58 mmHg Heart Rate 64 /min Body Temperature 98.2 F Respiratory Rate 16 /min Height 68 inches 5'8" Weight 136.00 lb BMI (Body Mass Index) 20.7 kg/m2 11/06/2009 BP Systolic 110 mmHg BP Diastolic 70 mmHg Heart Rate 64 /min Body Temperature 99.0 F Height 68 inches 5'8" Weight 137.00 lb BMI (Body Mass Index) 20.8 kg/m2 09/26/2009 BP Systolic 120 mmHg BP Diastolic 70 mmHg Heart Rate 60 /min Body Temperature 98.9 F Respiratory Rate 16 /min Height 68 inches 5'8" Weight 141.00 lb BMI (Body Mass Index) 21.4 kg/m2 09/05/2009 BP Systolic 102 mmHg BP Diastolic 60 mmHg Heart Rate 64 /min Body Temperature 97.4 F Respiratory Rate 16 /min Height 68 inches 5'8" Weight 140.00 lb BMI (Body Mass Index) 21.3 kg/m2 05/22/2009 BP Systolic 122 mmHg BP Diastolic 82 mmHg Heart Rate 102 /min Body Temperature 102.3 F Height 68 inches 5'8" Weight 138.00 lb BMI (Body Mass Index) 21.0 kg/m2 05/02/2009 BP Systolic 100 mmHg BP Diastolic 80 mmHg Heart Rate 60 /min Body Temperature 98.5 F Height 68 inches 5'8" Weight 124.00 lb BMI (Body Mass Index) 18.9 kg/m2 04/20/2009 BP Systolic 110 mmHg BP Diastolic 70 mmHg Heart Rate 72 /min Body Temperature 98.7 F Height 68 inches 5'8" Weight 138.00 lb BMI (Body Mass Index) 21.0 kg/m2 03/05/2009 BP Systolic 100 mmHg BP Diastolic 60 mmHg Heart Rate 60 /min Body Temperature 98.2 F Weight 123.00 lb 01/09/2009 BP Systolic 106 mmHg BP Diastolic 62 mmHg Heart Rate 60 /min Height 68 inches 5'8" Weight 122.00 lb BMI (Body Mass Index) 18.5 kg/m2 12/20/2008 BP Systolic 122 mmHg BP Diastolic 80 mmHg Heart Rate 68 /min Weight 122.00 lb 11/13/2008 BP Systolic 90 mmHg BP Diastolic 60 mmHg Heart Rate 60 /min Body Temperature 99.0 F Weight 117.00 lb 10/12/2008 BP Systolic 100 mmHg BP Diastolic 62 mmHg Heart Rate 64 /min Body Temperature 98.9 F Respiratory Rate 16 /min Weight 114.00 lb 09/25/2008 BP Systolic 104 mmHg BP Diastolic 58 mmHg Heart Rate 64 /min Body Temperature 98.8 F Respiratory Rate 12 /min Weight 116.00 lb 09/19/2008 BP Systolic 92 mmHg BP Diastolic 64 mmHg Heart Rate 52 /min Body Temperature 97.2 F Respiratory Rate 12 /min Weight 117.00 lb 09/11/2008 BP Systolic 98 mmHg BP Diastolic 66 mmHg Heart Rate 48 /min Body Temperature 97.5 F Respiratory Rate 20 /min Weight 120.00 lb 09/07/2008 BP Systolic 110 mmHg BP Diastolic 64 mmHg Heart Rate 64 /min Body Temperature 99.1 F Weight 121.00 lb 04/20/2008 BP Systolic 108 mmHg BP Diastolic 60 mmHg Heart Rate 66 /min Height 68 inches 5'8" Weight 121.00 lb BMI (Body Mass Index) 18.4 kg/m2 03/22/2008 BP Systolic 102 mmHg BP Diastolic 60 mmHg Heart Rate 68 /min Body Temperature 99.2 F Height 68 inches 5'8" Weight 122.00 lb BMI (Body Mass Index) 18.5 kg/m2 12/28/2007 BP Systolic 98 mmHg BP Diastolic 68 mmHg Heart Rate 56 /min Body Temperature 98.0 F Respiratory Rate 16 /min Height 68 inches 5'8" Weight 123.00 lb BMI (Body Mass Index) 18.7 kg/m2 06/08/2007 BP Systolic 112 mmHg BP Diastolic 68 mmHg Heart Rate 60 /min Body Temperature 100.0 F Height 68 inches 5'8" Weight 126.00 lb BMI (Body Mass Index) 19.2 kg/m2 05/20/2007 BP Systolic 102 mmHg BP Diastolic 60 mmHg Heart Rate 56 /min Respiratory Rate 16 /min Height 68 inches 5'8" Weight 130.00 lb BMI (Body Mass Index) 19.8 kg/m2 02/04/2007 BP Systolic 98 mmHg BP Diastolic 60 mmHg Heart Rate 60 /min Respiratory Rate 16 /min Height 68 inches 5'8" Weight 140.00 lb BMI (Body Mass Index) 21.3 kg/m2 Results Test Date Test Result H/L Range Note Laboratory test finding 01/31/2018 Lyme Disease Serology Positive Negative 1 Lyme Western Blot 01/31/2018 Lyme Disease IgG Ab WB Positive Negative Lyme Disease IgG Bands Present See Comment kDa 2 Lyme Disease IgM Ab WB Negative Negative Lyme Disease IgM Bands Present p41 kDa Lyme Disease Interpretation See Comment 3 Laboratory test finding 12/10/2017 LDH 160 IU/L 119-226 4 Folate (Folic Acid), Serum >20.0 ng/mL >3.0 4 CBC Electronic Fma 12/10/2017 WBC 4.9 x10^3/UL 4.0-10.0 RBC 3.41 x10^6/UL Low 3.93-6.00 HGB 12.3 g/dL 12.0-17.0 HCT 36 % 35-50 MCV 105.6 fL High 80.0-95.0 MCH 36.1 pg High 25.6-32.2 MCHC 34.2 g/dL 32.2-36.0 RDW-CV 12.7 % 11.6-14.4 PLT 229 x10^3/UL 163-400 MPV 10.2 fL 9.4-12.4 Perla# 2.64 x10^3/UL 1.56-6.13 Lymph# 1.70 x10^3/UL 1.18-3.74 Sublette# 0.40 x10^3/UL 0.24-0.82 Eos # 0.1 x10^3/UL 0.0-0.5 Baso # 0.03 x10^3/UL 0.01-0.08 Perla% 54.1 % 34.0-70.0 Lymph % 34.8 % 20.0-52.0 Sublette% 8.2 % 5.0-12.0 Eos% 2.3 % 0.7-7.0 Baso% 0.6 % 0.1-1.2 Laboratory test finding 12/10/2017 Vitamin B-12 463 pg/mL 230-1050 CBC Electronic Fma 12/02/2017 WBC 5.1 x10^3/UL 4.0-10.0 RBC 3.46 x10^6/UL Low 3.93-6.00 HGB 12.5 g/dL 12.0-17.0 HCT 36 % 35-50 MCV 103.5 fL High 80.0-95.0 5 MCH 36.1 pg High 25.6-32.2 MCHC 34.9 g/dL 32.2-36.0 RDW-CV 12.9 % 11.6-14.4 PLT 134 x10^3/UL Low 163-400 MPV 11.0 fL 9.4-12.4 Perla# 3.16 x10^3/UL 1.56-6.13 Lymph# 0.93 x10^3/UL Low 1.18-3.74 Sublette# 0.52 x10^3/UL 0.24-0.82 Eos # 0.4 x10^3/UL 0.0-0.5 Baso # 0.01 x10^3/UL 0.01-0.08 Perla% 62.4 % 34.0-70.0 Lymph % 18.4 % Low 20.0-52.0 Sublette% 10.3 % 5.0-12.0 Eos% 8.7 % High 0.7-7.0 Baso% 0.2 % 0.1-1.2 CBC Auto Diff 11/30/2017 White Blood Count 7.2 10^3/uL 3.5-10.8 Red Blood Count 3.80 10^6/uL Low 4.0-5.4 Hemoglobin 14.1 g/dL 12.0-16.0 Hematocrit 40 % 35-47 Mean Corpuscular Volume 105 fL High 80-97 Mean Corpuscular Hemoglobin 37 pg High 27-31 Mean Corpuscular HGB Conc 35 g/dL 31-36 Red Cell Distribution Width 14 % 10.5-15 Platelet Count 165 10^3/uL 150-450 Mean Platelet Volume 8.8 um3 7.4-10.4 Abs Neutrophils 5.3 10^3/uL 1.5-7.7 Abs Lymphocytes 0.7 10^3/uL Low 1.0-4.8 Abs Monocytes 0.7 10^3/uL 0-0.8 Abs Eosinophils 0.5 10^3/uL 0-0.6 Abs Basophils 0 10^3/uL 0-0.2 Abs Nucleated RBC 0 10^3/uL Granulocyte % 74.2 % 38-83 Lymphocyte % 9.9 % Low 25-47 Monocyte % 9.1 % High 0-7 Eosinophil % 6.6 % High 0-6 Basophil % 0.2 % 0-2 Nucleated Red Blood Cells % 0.1 Inr/Protime 11/30/2017 Inr 1.01 0.77-1.02 Laboratory test finding 11/30/2017 Partial Thrombo Time 30.5 seconds 26.0 -36.3 PTT D Dimer Quantitative 218 ng/mL Less Than 230 6 Lactic Acid 0.6 mmol/L 0.5-2.0 7 Comp Metabolic Panel 11/30/2017 Sodium 138 mmol/L Low 139-145 Potassium 3.9 mmol/L 3.5-5.0 Chloride 103 mmol/L 101-111 Co2 Carbon Dioxide 27 mmol/L 22-32 Anion Gap 8 mmol/L 2-11 Glucose 87 mg/dL 70-100 Blood Urea Nitrogen 9 mg/dL 6-24 Creatinine 0.71 mg/dL 0.51-0.95 BUN/Creatinine Ratio 12.7 8-20 Calcium 9.3 mg/dL 8.6-10.3 Total Protein 7.6 g/dL 6.4-8.9 Albumin 4.5 g/dL 3.2-5.2 Globulin 3.1 g/dL 2-4 Albumin/Globulin Ratio 1.5 1-3 Total Bilirubin 0.90 mg/dL 0.2-1.0 Alkaline Phosphatase 31 U/L Low 34-104 Alt 10 U/L 7-52 Ast 18 U/L 13-39 Egfr Non- 87.9 >60 Egfr 113.0 >60 8 Laboratory test finding 11/30/2017 Magnesium 1.8 mg/dL Low 1.9-2.7 Lipase 37 U/L 11.0-82.0 Creatine Kinase(CK) 59 U/L 10-223 C Reactive Protein 6.94 mg/L High < 5.00 9 Troponin I 0.00 ng/mL <0.04 CKMB 11/30/2017 CKMB ng/mL 0.9 ng/mL 0.6-6.3 Laboratory test finding 11/30/2017 HCG 0.86 mIU/mL 10 TSH (Thyroid Stim Horm) 2.82 mcIU/mL 0.34-5.60 Vaginitis Plus Nuswab 11/24/2017 Atopobium vaginae Low - 0 Score 11 Bvab 2 Low - 0 Score 11 Megasphaera 1 Low - 0 Score 11, 12 Christin albicans, Kellen Negative Negative 11 Christin glabrata, Kellen Negative Negative 11, 13 Trich vag by Kellen Positive Negative 11, 14 Chlamydia trachomatis, Kellen Negative Negative 11 Neisseria gonorrhoeae, Kellen Negative Negative 11 Vaginitis Plus Nuswab 07/15/2016 Atopobium vaginae Low - 0 Score 15 Bvab 2 Low - 0 Score 15 Megasphaera 1 Low - 0 Score 15, 16 Christin albicans, Kellen Negative Negative 15 Christin glabrata, Kellen Negative Negative 15, 17 Trich vag by Kellen Negative Negative 15 Chlamydia trachomatis, Kellen Negative Negative 15 Neisseria gonorrhoeae, Kellen Negative Negative 15 Age 1207/15/2016 Age 30-65 Diagn See Comment: 18 Adeq See Comment: 19 [email or web address] See Comment: 20 Perfor See Comment: 21 QC Rev See Comment: 22 Comm . Note See Comment: 23 Iglbp See Comment: 24 HPV Aptima Negative Negative 25 Laboratory test finding 07/15/2016 PDF [id number] SEE IMAGE Hepatitis Panel, Acute 07/15/2016 Hep A Ab, IgM Negative Negative 26 HBsAg Screen Negative Negative 26 Hep B Core Ab, IgM Negative Negative 26 Hep C Virus Ab 0.2 s/coratio 0.0-0.9 26, 27 Laboratory test 07/15/2016 RPR Non Reactive Non Reactive 26 finding HIV 1/O/2 Ag/AB 07/15/2016 HIV Screen 4th Non Reactive Non Reactive 26 Prelim W/Gratiot RFX Generation wRfx Sup Laboratory test 07/04/2015 Urine Negative Negative 28 finding Laboratory test 05/02/2015 Cytology SEE RESULT BELOW 29 finding Human Papilloma Virus Rna Negative Negative 30 Laboratory test 05/02/2015 Gardnerella/Yeast: Vaginal SEE RESULT 31 finding Dna BELOW Laboratory test 05/02/2015 Prolactin 7.0 ng/mL 1.0-25.0 32 finding Ua - Non Micro 05/02/2015 Appearance clear (Fma) Color yellow Glucose, Urine (Fma/CMC/CTX) - Bilirubin - Ketones - SP Grav 1.015 Blood - PH 7.0 Protein - Urobil 0.2 Nitrite - Leukocytes (Fma/CMC/Centrex) - Laboratory test finding 05/02/2015 TSH 2.43 mIU/L 0.50-6.00 Comprehensive Metabolic Prof 05/02/2015 Sodium 135 mEq/L 134-149 Potassium 4.4 mEq/L 3.6-5.5 Chloride 99 mEq/L 94-112 Carbon Dioxide 26 mEq/L 21-32 Glucose 90 mg/dL 70-105 BUN 14 mg/dL 6-26 Creatinine 0.7 mg/dL 0.6-1.4 BUN/Creat Ratio 20.0 CALC 8.0-36.0 Calcium 9.7 mg/dL 8.6-10.2 Total Protein 8.0 g/dL 6.4-8.3 Albumin 4.8 g/dL 3.8-5.5 Globulin 3.2 g/dL 2.0-4.8 A/G Ratio 1.5 CALC 0.6-2.3 Alk. Phosphatase 38 U/L 30-110 Alt (SGPT) 12 U/L 7-35 Ast (Sgot) 22 U/L 5-34 Total Bilirubin 0.9 mg/dL 0.2-1.3 GFR Non- >60 ml/min/1.73m^ >=60 GFR >60 ml/min/1.73m^ >=60 Complete Blood Count 05/02/2015 WBC 7.6 x10^3/UL 3.6-9.6 RBC 3.85 x10^6/UL Low 3.90-5.70 HGB 13.8 g/dL 12.1-17.2 HCT 40 % 36-50 MCV 105.0 fL High 82.2-97.4 33 MCH 35.8 pg High 27.6-33.3 34 MCHC 34.1 g/dL 33.0-35.5 RDW 14.3 % High 11.6-13.7 PLT 201 x10^3/UL 150-400 MPV 8.2 fL 7.4-10.4 Gran # 5.8 x10^3/UL 1.5-7.2 Lymph# 1.6 x10^3/UL 0.7-4.9 Sublette# 0.2 x10^3/UL 0.1-0.9 Gran % 75.2 % 42.2-75.2 Lymph % 21.2 % 20.5-51.1 Sublette% 3.6 % 1.7-9.3 Urine (Fma) 05/02/2015 SP Grav 1.015 Urine, (Fma/CMC/CTX) negative Ua - Micro (Fma) 01/05/2014 Appearance CLEAR Color YELLOW Glucose, Urine (Fma/CMC/CTX) NEG Bilirubin NEG Ketones NEG SP Grav 1.010 Blood NEG PH 5.5 Protein NEG Urobil 0.2 Nitrite NEG Leukocytes (Fma/CMC/Centrex) NEG WBC (Fma,Centrex) 3-4 RBC 0-1 Epith RARE /Lpf Bacteria TRACE /Hpf GC/Chlamydia Amplified 01/05/2014 GC/Chlamydia Rna (SEE NOTE) 35 Rna Laboratory test 01/05/2014 Hepatitis C Antibody Nonreactive Nonreactive 36 finding HIV 1/2 AB Evaluation 01/05/2014 HIV 1 2 Antibody Nonreactive Nonreactive 37 Laboratory test 01/05/2014 Hepatitis Be Antibody Negative Negative 38 finding Syphilis Screen 01/05/2014 Syphilis IgG Nonreactive Nonreactive 39 RPR TNP Nonreactive RPR Titer TNP Pediatric/Maternal NO Comprehensive Metabolic Prof 06/01/2013 Albumin 4.2 g/dL 3.8-5.5 Alk. Phos. 38 U/L 30-110 Alt (SGPT) 24 U/L 7-35 Ast (Sgot) 25 U/L 5-34 BUN 11 mg/dL 6-26 Calcium 8.7 mg/dL 8.6-10.2 Chloride 100 mEq/L 94-112 Creatinine 0.8 mg/dL 0.6-1.4 Carbon Dioxide 26 mEq/L 21-32 Glucose 85 mg/dL 70-105 Sodium 137 mEq/L 134-149 Total Bilirubin 0.6 mg/dL 0.2-1.3 Total Protein 7.1 g/dL 6.3-8.1 Potassium 4.2 mEq/L 3.6-5.5 Globulin 2.9 g/dL 2.0-4.8 A/G Ratio 1.5 Calc 0.6-2.3 BUN/Creat Ratio 13.1 Calc 8.0-36.0 Laboratory test finding 06/01/2013 TSH 3.55 mIU/L 0.50-6.00 Lipid Profile 06/01/2013 Cholesterol 188 mg/dL 120-200 HDL 66 mg/dL 30-85 Triglycerides 98 mg/dL 30-200 HDL Risk Factor 2.8 CALC 0.0-4.4 LDL (Calculated) 102 CALC 0-129 VLDL (Calculated) 20 mg/dL 0-50 CBC Electronic (a) 06/01/2013 WBC 7.4 3.6-9.6 RBC 3.98 3.90-5.70 Hemoglobin (Fma/CMC/CTX) 14.2 g/dL 12.1 - 17.2 Hematocrit (Fma/CMC/CTX) 42.3 % 36.1 - 50.3 Platelets 212 10^3/ul 150-400 Lymph% 29.7 20.5-51.1 Mixed% 3.1 Neutrophils % 67.2 Mean Corpuscular Vol 106 High 82.2-97.4 40 Mean Corpuscular Hemoglobin 35.8 High 27.6-33.3 Mean Corpuscular Hemo Concen 33.7 32.0-36.0 RDW 11.8 11.6-13.7 Mean Platelet Volume 7.6 6.5-11.0 Laboratory test finding 06/01/2013 B12 > 2100 pg/mL High 230-1050 41 Laboratory test finding 06/01/2013 Vitamin D 55 pg/mL 18-78 42 1,25-Dihydroxy MMR Screen ([facility] [place] 06/01/2013 Rubella Screen Immune Immune 43 Rubeola Measles Igg AB 06/01/2013 Rubeola (Measles) IgG Positive 44 Antibody Rubeola IgG Antibody Index 3.6 45 Mumps Igg 06/01/2013 Mumps Virus IgG Antibody Negative 46 Mumps IgG Antibody Index 0.3 47 Human Papilloma 05/20/2013 Human Papillomavirus Source See Comment 48 Human Papillomavirus High Risk Negative Negative 49 Ua - Non Micro (a) 05/19/2013 Appearance clear Color yellow Glucose - Bilirubin - Ketones - SP Grav 1.010 Blood moderate menses PH 6.5 Protein - Urobil 0.2 Nitrite - Leukocytes (Fma/CMC/Centrex) - Laboratory test finding 05/19/2013 Cytology RUN DATE: SEE NOTE> 50 Ua - Non Micro (Fma) 05/12/2012 Appearance clear Color yellow Glucose - Bilirubin - Ketones - SP Grav 1.010 Blood - PH 7.0 Protein - Urobil 0.2 Nitrite - Leukocytes (Fma/CMC/Centrex) - Laboratory test finding 05/12/2012 Thin Prep W/HPV(Lsil/WERNER/Asc) SEE NOTE 51 Laboratory test finding 07/17/2011 Thin Prep W/HPV(Lsil/WERNER/Asc) SEE NOTE 52 GC/Chlamydia Probe Or 07/17/2011 Chlamydia Amplified Probe NEGATIVE 53 Urine(Centrex) GC Amplified Probe NEGATIVE 53 Laboratory test 07/17/2011 RPR NON-REACTIVE Non-Reactive 53 finding Anti Viral AB Screen 07/17/2011 HIV 1/O/2 <1.00 <1.00 53, 54 Abs-Index Value HIV 1/O/2 Abs, Qual Non Reactive 53, 55 Hep C Abs 07/17/2011 Hep C Antibody NON-REACTIVE Non-Reactive 53 Hep C S/Co Ratio 0.0 0.0-0.7 53 Ua - Non Micro (a) 03/05/2011 Appearance CLEAR Color YELLOW Glucose NEG Bilirubin NEG Ketones NEG SP Grav <=1.005 Blood NEG PH 5.0 Protein NEG Urobil 0.2 Nitrite NEG Leukocytes (Fma/CMC/Centrex) NEG Comprehensive Metabolic Prof 12/24/2010 Albumin 4.3 g/dL 3.8-5.5 Alk. Phos. 39 U/L 30-110 Alt (SGPT) 9 U/L 7-35 Ast (Sgot) 16 U/L 5-34 BUN 13 mg/dL 6-26 Calcium 9.1 mg/dL 8.6-10.2 Chloride 103 mEq/L 94-112 Creatinine 0.8 mg/dL 0.6-1.4 Carbon Dioxide 23 mEq/L 21-32 Glucose 95 mg/dL 70-105 Sodium 138 mEq/L 134-149 Total Bilirubin 0.6 mg/dL 0.2-1.3 Total Protein 6.8 g/dL 6.3-8.1 Potassium 4.1 mEq/L 3.6-5.5 Globulin 2.5 g/dL 2.0-4.8 A/G Ratio 1.7 Calc 0.6-2.2 BUN/Creat Ratio 16.4 Calc 8.0-36.0 Lipid Profile 12/24/2010 Cholesterol 178 mg/dL 120-200 HDL 54 mg/dL 30-85 Triglycerides 93 mg/dL 30-200 HDL Risk Factor 3.3 CALC 0.0-4.0 LDL (Calculated) 105 CALC 0-129 VLDL (Calculated) 19 mg/dL 0-50 CBC Electronic (Fma) 12/24/2010 WBC 7.4 3.6-9.6 RBC 3.59 Low 3.90-5.70 Hemoglobin (Fma/CMC/CTX) 12.8 g/dL 12.1 - 17.2 Hematocrit (Fma/CMC/CTX) 37.0 % 36.1 - 50.3 Platelets 208 10^3/ul 150-400 Lymph% 21.9 20.5-51.1 Mixed% 4.0 Neutrophils % 74.1 Mean Corpuscular Vol 103 High 82.2-97.4 Mean Corpuscular Hemoglobin 35.7 High 27.6-33.3 Mean Corpuscular Hemo Concen 34.6 32.0-36.0 RDW 11.5 Low 11.6-13.7 Mean Platelet Volume 8.8 6.5-11.0 Laboratory test finding 07/24/2010 [facility] [place] [facility] Test SEE SCanned Ua - Micro (a) 07/09/2010 Appearance CLEAR Color YELLOW Glucose NEG Bilirubin NEG Ketones NEG SP Grav 1.010 Blood TRACE-LYSED PH 5.5 Protein NEG Urobil 0.2 Nitrite NEG Leukocytes (Fma/CMC/Centrex) TRACE Hyaline - /Lpf Granular - /Lpf WBC (Fma,Centrex) 3-5 RBC 3-5 Mucus - /Lpf Epith OCC /Lpf Bacteria 1+ /Hpf Amorphous - /Lpf Crystals, Fluid (Fma/CMC/CTX) - Z#Comments - Laboratory test 07/09/2010 Thin Prep W/HPV(Lsil/WERNER/Asc) SEE NOTE 56 finding CBC With Electronic 12/05/2009 White Blood Count 5.6 CUMM 4.8-10.8 Diff Red Cell Count 3.98 CUMM Low 4.2-5.4 Hemoglobin 13.3 g/dL 12.0-16.0 Hematocrit 40 % 35-47 Mean Corpuscular Volume 100 um3 High 79-97 Mean Corpuscular Hemoglob 33 pg High 27-31 Mean Corpuscular HGB Cone 34 g/dL 32-36 Redcell Distribution WDTH 14 % 10.5-15 Platelet Count 190 CUMM 150-450 Mean Platelet Volume 9.1 um3 7.4-10.4 Gran % 65.7 % 38-83 Lymph % 27.4 % 25-47 Mononuclear % 5.5 % 1-9 Eosinophil % 1.1 % 0-6 Basophil % 0.3 % 0-2 Abs Lymphs 1.5 1.0-4.8 Abs Mononuclear 0.3 0-0.8 Absolute Neutrophil Count 3.7 1.5-7.7 Abs Eosinophils 0.1 0-0.6 Abs Basophils 0 0-0.2 Comp Metabolic Panel 12/05/2009 Sodium 135 mmol/L 135-145 Potassium 3.8 mmol/L 3.5-5.0 Chloride 105 mmol/L 101-111 Co2 (Carbon Dioxide) 24.0 mmol/L 22-32 Anion Gap 6.0 mmol/L 2-11 57 Glucose 100 mg/dL 70-100 58 BUN 12 mg/dL 6-24 Creatinine 0.90 mg/dL 0.50-1.40 One Over Creatinine 1.10 BUN/Creatinine Ratio 13.3 8-20 Calcium 9.1 mg/dL 8.1-9.9 59 Total Protein 6.9 GM/DL 6.2-8.1 Albumin 4.1 GM/DL 3.6-5.4 Globulin 2.8 GM/DL 2-4 Albumin/Globulin Ratio 1.5 1-3 Bilirubin Total 0.8 mg/dL 0.4-1.5 60 Alkaline Phosphatase 33 U/L 30-110 Alt (SGPT) 13 U/L Low 14-54 Ast (Sgot) 25 U/L 12-42 eGFR Non- 73.7 > 60 eGFR 89.2 > 60 61 Laboratory test finding 12/05/2009 Troponin-I (TnI) 0 NG/ML 62 Protime 12/05/2009 Inr 0.91 Low 0.97-1.03 63 Protime 10.7 SEC Low 11.5-12.2 64 Laboratory test finding 12/05/2009 PTT (Aptt) 27.3 25.15-38.53 65 (HCG) Serum NEGATIVE Negative 66 Urinalysis 12/05/2009 Ua Color YELLOW Yellow Appearance-Urine CLEAR Clear Specific [place]-Ur 1.006 Low 1.010-1.030 Esterase-Urine NEGATIVE Negative Nitrite NEGATIVE Negative Ltwuoauwyoxs-Ak-LNN NEGATIVE Negative Protein-Urine NEGATIVE Negative PH-Urine 6.0 5-9 Blood-Urine NEGATIVE Negative Ketones-Urine NEGATIVE Negative Bilirubin-Ur NEGATIVE Negative Glucose-Urine NEGATIVE Negative Laboratory test 10/26/2009 [facility] [place] Lab Test HB S AG;HEP C See Image finding Report Anti Dna (SS) Igg, 09/05/2009 Anti-Dna(SS)IgG, 133 EU High 0-19 67 AB Ab, Qn Ua - Non Micro 09/05/2009 Appearance clear (Fma) Color yellow Glucose, Urine (Fma/CMC/CTX) neg Bilirubin neg Ketones neg SP Grav <1.005 Blood trace Menses PH 6.5 Protein neg Urobil 0.2 Nitrite neg Leukocytes (a/CMC/Centrex) neg Kapil Pattern & Titer 09/05/2009 Homogeneous Pattern 1:640 High Note: SEE BELOW 68 Kapil Panel Complete [place] 09/05/2009 Antinuclear Abs, Ifa See patterns 69 Rheumatoid Arth Factor 7.0 IU/mL 0.0-13.9 Anti Dsdna Antibodies 3 IU/mL 0-9 70 Hla-B27 Disease Association 09/05/2009 Hla-B27 Negative 71 Antiextractable Nuclear Ag 09/05/2009 WARD ATTENDANT Antibodies 0.2 AI 0.0-0.9 Schwarz Antibodies 0.3 AI 0.0-0.9 CBC ([facility]) 09/05/2009 WBC 5.3 3.6-9.6 RBC 3.87 Low 3.90-5.70 Hemoglobin (Fma/CMC/CTX) 13.1 g/dL 12.1 - 17.2 Hematocrit (Fma/CMC/CTX) 40.2 % 36.1 - 50.3 Mean Corpuscular Vol 103.9 High 82.2-97.4 Mean Corpuscular Hemaglobin 33.9 High 27.6-33.3 Mean Corpuscular Hemo Concen 32.6 Low 33.0-36.0 Platelets 216 10^3/ul 150-400 Lymph% 24.3 20.5-51.1 Mixed% 9.1 Neutrophils % 66.6 RDW 12.8 11.6-13.7 Mean Platelet Volume 11.6 High 7.4-10.4 Laboratory test finding 09/05/2009 Sed Rate (a/CMC/Centrex) 38 mm Lipid Profile 08/04/2009 Cholesterol 197 mg/dL 120-200 HDL 55 mg/dL 30-85 Triglycerides 92 mg/dL 30-200 HDL Risk Factor 3.6 CALC Low 4.2-7.0 LDL (Calculated) 124 CALC 0-129 VLDL (Calculated) 18 mg/dL 0-50 Comprehensive Metabolic Prof 08/04/2009 Albumin 4.3 g/dL 3.8-5.5 Alk. Phos. 61 U/L 30-110 Alt (SGPT) 9 U/L 7-35 Ast (Sgot) 19 U/L 5-34 BUN 12 mg/dL 6-26 Calcium 9.2 mg/dL 8.6-10.2 Chloride 104 mEq/L 94-112 Creatinine 0.8 mg/dL 0.6-1.4 Carbon Dioxide 24 mEq/L 21-32 Glucose 133 mg/dL High 70-105 Sodium 142 mEq/L 134-149 Total Bilirubin 0.2 mg/dL 0.2-1.3 Total Protein 6.5 g/dL 6.3-8.1 Potassium 4.7 mEq/L 3.6-5.5 Globulin 2.2 g/dL 2.0-4.8 A/G Ratio 1.9 Calc 0.6-2.2 BUN/Creat Ratio 14.9 Calc 8.0-36.0 Complete Blood Count 08/04/2009 WBC 6.8 x10^3/uL 3.6-9.6 Gran# 4.9 x10^3/uL 1.5-7.2 Gran% 72.7 % 42.2-75.2 HCT 36 % Low 36-50 HGB 12.7 g/dL 12.1-17.2 Lymph# 1.4 x10^3/uL 0.7-4.9 Lymph% 20.8 % 20.5-51.1 MCH 34.6 pg High 27.6-33.3 MCV 99.6 fL High 82.2-97.4 MCHC 34.7 g/dL 33.0-35.5 Mo# 0.4 x10^3/uL 0.1-0.9 Mo% 6.5 % 1.7-9.3 MPV 8.6 fL 7.4-10.4 PLT 234 x10^3/uL 150-400 RBC 3.66 x10^6/uL Low 3.90-5.70 RDW 12.2 % 11.6-13.7 Influenza A&B 05/22/2009 Influenza A neg Influenza B neg Ua - Non Micro (Fma) 05/02/2009 Appearance clear Color yellow Glucose - Bilirubin - Ketones - SP Grav 1.015 Blood - PH 6.0 Protein - Urobil 0.2 Nitrite - Leukocytes (Fma/CMC/Centrex) - GC/Chlamydia Probe Or 05/02/2009 Chlamydia Amplified Probe NEGATIVE Urine(Centrex) GC Amplified Probe NEGATIVE Laboratory test 05/02/2009 Thin Prep SEE NOTE 72 finding W/HPV(Lsil/WERNER/Asc) Throat-Beta Strept 02/22/2009 Throat-Beta Strep Culture NEGAD 73 Laboratory test 12/20/2008 Herpes Culture With Typing No herpes 74 finding simple <SEE NOTE> Laboratory test 11/13/2008 RPR NON-REACTIVE Non-Reac finding tive Anti Viral AB 11/13/2008 HIV 1/O/2 Abs-Index Value <1.00 <1.00 75 Screen HIV 1/O/2 Abs, Qual Non Reactive 76 GC/Chlamydia Probe Or 11/13/2008 Chlamydia Amplified Probe NEGATIVE Urine(Centrex) GC Amplified Probe NEGATIVE Ua - Micro (Fma) 10/12/2008 Appearance CLEAR Color YELLOW Glucose NEG Bilirubin NEG Ketones NEG SP Grav 1.015 Blood TRACE-INTACT Spotting PH 7.0 Protein TRACE Urobil 0.2 Nitrite NEG Leukocytes (Fma/CMC/Centrex) TRACE Hyaline - /Lpf Granular - /Lpf WBC (Fma,Centrex) 2-3 RBC 2-3 Mucus - /Lpf Epith OCC /Lpf Bacteria TRACE /Hpf Amorphous - /Lpf Crystals, Fluid (Fma/CMC/CTX) - Z#Comments - Comprehensive Metabolic Prof 10/03/2008 Albumin 4.5 g/dL 3.8-5.5 77 Alk. Phos. 48 U/L 30-110 77 Alt (SGPT) 9 U/L 7-35 77 Ast (Sgot) 22 U/L 5-34 77 BUN 12 mg/dL 6-26 77 Calcium 9.9 mg/dL 8.6-10.2 77 Chloride 102 mEq/L 94-112 77 Creatinine 0.8 mg/dL 0.6-1.4 77 Carbon Dioxide 26 mEq/L 21-32 77 Glucose 95 mg/dL 70-105 77 Sodium 138 mEq/L 134-149 77 Total Bilirubin 0.6 mg/dL 0.2-1.3 77 Total Protein 8.1 g/dL 6.3-8.1 77 Potassium 4.6 mEq/L 3.6-5.5 77 Globulin 3.5 g/dL 2.0-4.8 77 A/G Ratio 1.3 Calc 0.6-2.2 77 BUN/Creat Ratio 14.3 Calc 8.0-36.0 77 Lipid Profile 10/03/2008 Cholesterol 166 mg/dL 120-200 77 HDL 55 mg/dL 30-85 77 Triglycerides 58 mg/dL 30-200 77 HDL Risk Factor 3.0 CALC Low 4.2-7.0 77 LDL (Calculated) 99 CALC 0-129 77 VLDL (Calculated) 12 mg/dL 0-50 77 Complete Blood Count 10/03/2008 WBC 11.9 x10^3/uL High 3.6-9.6 77 Gran# 9.4 x10^3/uL High 1.5-7.2 77 Gran% 78.6 % High 42.2-75.2 77 HCT 42 % 36-50 77 HGB 14.3 g/dL 12.1-17.2 77 Lymph# 2.1 x10^3/uL 0.7-4.9 77 Lymph% 17.4 % Low 20.5-51.1 77 MCH 33.7 pg High 27.6-33.3 77 MCV 98.0 fL High 82.2-97.4 77 MCHC 34.4 g/dL 33.0-35.5 77 Mo# 0.5 x10^3/uL 0.1-0.9 77 Mo% 4.0 % 1.7-9.3 77 MPV 8.9 fL 7.4-10.4 77 PLT 238 x10^3/uL 150-400 77 RBC 4.25 x10^6/uL 3.90-5.70 77 RDW 12.7 % 11.6-13.7 77 Manual Differential 09/19/2008 S. Neutrophils 61 % 45-75 B. Neutrophils 7 % High 0-6 Lymphocytes 30 % 20-45 Monocytes 2 % 0-25 Macrocytosis 1+ None Platelet Estimate ADEQUATE Hemogram W/PLT 09/19/2008 WBC 7.0 x10^3/uL 3.6-9.6 HCT 40 % 36-50 HGB 13.5 g/dL 12.1-17.2 MCH 33.8 pg High 27.6-33.3 MCV 100.1 fL High 82.2-97.4 MCHC 33.8 g/dL 33.0-35.5 PLT 230 x10^3/uL 150-400 RBC 3.99 x10^6/uL 3.90-5.70 RDW 12.8 % 11.6-13.7 Laboratory test finding 09/19/2008 Quickstrep NEGATIVE Negative Monospot (Fma/Centrex) NEGATIVE Throat - Beta Strep Fma NEG@48HRS Ua - Micro (Fma) 04/20/2008 Appearance CLEAR Color YELLOW Glucose, Urine (Fma/CMC/CTX) NEG Bilirubin NEG Ketones NEG SP Grav <1.005 Blood TRACE PH 6.0 Protein NEG Urobil 0.2 Nitrite NEG Leukocytes (Fma/CMC/Centrex) NEG Hyaline - /Lpf Granular - /Lpf WBC (Fma,Centrex) 4-6 RBC 0-1 Mucus (Fma/CBC/Centrex) - /Lpf Epith FEW /Lpf Bacteria 2+ /Hpf Amorphous (Fma/CMC/Centrex) - /Lpf Crystals, Fluid (Fma/CMC/CTX) - Z#Comments - Laboratory test finding 04/20/2008 Thin Prep W/HPV(Lsil/WERNER/Asc) SEE NOTE 78 HPV, High Risk Only Negative for hig <SEE NOTE> 79 Ua - Micro (Fma) 03/22/2008 Appearance CLEAR Color YELLOW Glucose NEG Bilirubin NEG Ketones 2+ SP Grav 1.015 Blood TRACE PH 7.0 Protein NEG Urobil 0.2 Nitrite NEG Leukocytes (Fma/CMC/Centrex) NEG Hyaline - /Lpf Granular - /Lpf WBC (Fma,Centrex) 0 RBC 3-6 Mucus - /Lpf Epith FEW /Lpf Bacteria - /Hpf Amorphous - /Lpf Crystals, Fluid (Fma/CMC/CTX) - Z#Comments - Laboratory test finding 05/20/2007 TSH 2.32 mIU/L 0.50-6.00 Comprehensive Metabolic Prof 05/20/2007 Albumin 4.4 g/dL 3.8-5.5 Alk. Phos. 36 U/L 30-110 Alt (SGPT) 11 U/L 7-35 Ast (Sgot) 21 U/L 5-34 BUN 10 mg/dL 6-26 Calcium 9.5 mg/dL 8.6-10.2 Chloride 98 mEq/L 94-112 Creatinine 0.7 mg/dL 0.6-1.4 Carbon Dioxide 28 mEq/L 21-32 Glucose 83 mg/dL 70-105 Sodium 134 mEq/L 134-149 Total Bilirubin 1.1 mg/dL 0.2-1.3 Total Protein 7.6 g/dL 6.3-8.1 Potassium 4.1 mEq/L 3.6-5.5 Globulin 3.2 g/dL 2.0-4.8 A/G Ratio 1.4 Calc 0.6-2.2 BUN/Creat Ratio 13.8 Calc 8.0-36.0 Surgical Pathology 03/15/2007 Surgical Pathology <SEE NOTE > 80 1 Not diagnostic. Supplemental testing by immunoblot has been ordered by reflex. 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 ADDITIONAL INFORMATION CDC criteria require >=5 bands for IgG or >=2 bands for IgM for the Immunoblot to be considered positive. Bands (e.g.,p41) may be detected in patients without Lyme disease, and patterns not meeting the CDC criteria should be interpreted with caution. Immunoblot should be ordered only on specimens that are positive or equivocal by a FDA-licensed Lyme disease antibody screening test (e.g., EIA). Test Performed by: [facility] [place] [address] 4 1 rep top serum poured off 5 consistent w/ previous results 6 Please note: The following may produce a false positive D Dimer test: - Rheumatoid factor greater than 60 IU/ml - Plasma hemoglobin greater than 0.05 gm/dl - Bilirubin greater than 50 mg/dl - Lipids greater than 1000 mg/dl - FDP greater than 20 ug/ml 7 [facility] Severe Sepsis and Septic Shock Management Bundle Measure requires all lactic acids initially measuring >2.0 mmol/L be repeated. 8 Because ethnic data is not always readily available, this report includes an eGFR for both -Americans and non- Americans. The National Kidney Disease Education Program (NKDEP) does not endorse the use of the MDRD equation for patients that are not between the ages of 18 and 70, are , have extremes of body size, muscle mass, or nutritional status, or are non- or non-. According to the National Kidney Foundation, irrespective of diagnosis, the stage of the disease is based on the level of kidney function: Stage Description GFR(mL/min/1.73 m(2)) 1 Kidney damage with normal or decreased GFR 90 2 Kidney damage with mild decrease in GFR 60-89 3 Moderate decrease in GFR 30-59 4 Severe decrease in GFR 15-29 5 Kidney failure <15 (or dialysis) 9 Acute inflammation: >10.00 10 <5.0 Negative 5.0 - 25.0 Indeterminate (Repeat testing recommended after 72 hours) >25.0 Positive Perimenopausal women can display HCG levels of up to 20 mIU/mL 11 1 APTIMA SWAB 12 Calculate total score by adding the 3 individual bacterial vaginosis (BV) marker scores together. Total score is interpreted as follows: Total score 0-1: Indicates the absence of BV. Total score 2: Indeterminate for BV. Additional clinical data should be evaluated to establish a diagnosis. Total score 3-6: Indicates the presence of BV. This test was developed and its performance characteristics determined by [facility] [employer]. It has not been cleared or approved by the Food and Drug Administration. The FDA has determined that such clearance or approval is not necessary. 13 This test was developed and its performance characteristics determined by [facility] [employer]. It has not been cleared or approved by the Food and Drug Administration. The FDA has determined that such clearance or approval is not necessary. 14 Client Requested Flag 15 1 orange aptima swab 16 Calculate total score by adding the 3 individual bacterial vaginosis (BV) marker scores together. Total score is interpreted as follows: Total score 0-1: Indicates the absence of BV. Total score 2: Indeterminate for BV. Additional clinical data should be evaluated to establish a diagnosis. Total score 3-6: Indicates the presence of BV. This test was developed and its performance characteristics determined by [facility] [employer]. It has not been cleared or approved by the Food and Drug Administration. The FDA has determined that such clearance or approval is not necessary. 17 This test was developed and its performance characteristics determined by [facility] [employer]. It has not been cleared or approved by the Food and Drug Administration. The FDA has determined that such clearance or approval is not necessary. 18 NEGATIVE FOR INTRAEPITHELIAL LESION AND MALIGNANCY. THIS SPECIMEN WAS RESCREENED PART OF OUR RELEASE COORDINATOR PROGRAM. 19 Satisfactory for evaluation. Endocervical and/or squamous metaplastic cells (endocervical component) are present. 20 Z12.4 21 Walker Armas, Newsperson (ASCP) 22 Lowell Lockhart, Newsperson (ASCP) 23 The Pap smear is a screening test designed to aid in the detection of premalignant and malignant conditions of the uterine cervix. It is not a diagnostic procedure and should not be used as the sole means of detecting cervical cancer. Both false-positive and false-negative reports do occur. 24 This liquid based ThinPrep(R) pap test was screened with the use of an image guided system. 25 This test detects fourteen high-risk HPV types (16/18/31/33/35/39/45/ 51/52/56/58/59/66/68) without differentiation. 26 3 sst 27 Negative: < 0.8 Indeterminate: 0.8 - 0.9 Positive: > 0.9 The CDC recommends that a positive HCV antibody result be followed up with a HCV Nucleic Acid Amplification test (526680). 28 If is still suspected, please repeat test after 48 to 72 hours. This test detects intact HCG only and is indicated for the early detection of . 29 SEE RESULT BELOW Name: VERDEWENDYNUSRAT : [address]: Miesha Sebastian [facility] Acct: [id number] Unit: [id number] AGE: 45 Location: [facility] Re05/02/15 SEX: F Status: REG REF SPEC: [id number] ANNALEE: 05/02/[address]: Miesha Sebastian [facility] REQ: [id number] RECD: 05/02/15 STATUS: SOUT _ ORDERED: IMAGE ANALYSIS, PAP SM PATH REV, HPV/Thin Prep FINAL DIAGNOSIS Negative for Intraepithelial lesion or Malignancy Fungal organisms morphologically consistent with Christin species Reactive cellular changes associated with Inflammation (includes typical repair) A. Ectocervical/Endocervical Specimen Adequacy: Satisfactory of evaluation Transformation zone component identified Patient Information: HPV: High risk HPV RNA testing regardless of pap results. Actual Specimen Date: 05/02/15 Last Menstrual Date: 04/18/15 ?: N Post Menopausal?: N Hysterectomy?: N Date Time Test Result Flag (u) Normal Range 05/02/15 1138 HPV RNA Negative Negative The high-risk HPV types detected by the assay include: 16, 18, 31, 33, 35, 39, 45, 51, 52, 56, 58, 59, 66, and 68. Signed (signature on file) Marianne Song MD 9650 This Pap test was evaluated with the assistance of the ThinPrep Test Imaging System. Due to cytologic findings at the marketing specialist microscope, comprehensive manual rescreening by a Newsperson may be required. The Pap Smear is a screening test designed to aid in the detection of premalignant and malignant conditions of the uterine cervix. It is not a diagnostic procedure and should not be used as the sole means of detecting cervical cancer. Both false- positive and false- negative reports do occur. Depending on your risk status, a Pap smear should be obtained and evaluated every 1-3 years. END OF REPORT * ML=Testing performed at Main Lab DEPARTMENT OF PATHOLOGY, [address] [place] [address] Peng Kang M.D. Director [facility] # [id number] RUN DATE: 05/03/15 [facility] LAB LIVE PAGE 1 Patient: WENDY VERDEFER [id number] (Continued) 30 The high-risk HPV types detected by the assay include: 16, 18, 31, 33, 35, 39, 45, 51, 52, 56, 58, 59, 66, and 68. 31 SEE RESULT BELOW Name: NUSRAT VERDE : [address]: Miesha Sebastian [facility] Acct: [id number] Unit: [id number] AGE: 45 Location: [facility] Re05/02/15 SEX: F Status: REG REF SPEC: [id number] ANNALEE: 05/02/[address]: Miesha Sebastian [facility] REQ: [id number] RECD: 05/02/15 STATUS: COMP _ SOURCE: VAGINAL SPDESC: ORDERED: [place],Yeast DNA, Trich DNA COMMENTS: 1 AFFIRM SWAB Procedure Result Verified Site Gardnerella/Yeast: Vaginal DNA Final 05/03/15- 1339 ML Organism 1 Negative Gardnerella Organism 2 POSITIVE CHRISTIN The presence of G. vaginalis, although suggestive, is not diagnostic for bacterial vaginosis. Results should be interpreted in conjuction with other clinical and laboratory data available. Women with vaginal discharge should be evaluated for risk factors of cervicitis and pelvic inflammatory disease, toxic shock syndrome (S.aureus), and if present, evaluated for organisms not included in this assay such as N. gonorrhoeae, C. trachomatis, Mobiluncus, Mycoplasma and/or Prevotella. Mixed infections may occur. The performance of this test on patient specimens collected during or immediately after antimicrobial therapy is unknown. The presence or absence of Christin species, or G. vaginalis cannot be used as a test for therapeutic success or failure. Trichomonas: Vaginal DNA Probe Final 05/03/15- 1339 ML Organism 1 Negative Trichomonas CONTINUED ON NEXT PAGE * ML=Testing performed at Main Lab DEPARTMENT OF PATHOLOGY, [address] [place] [address] Peng Kang M.D. Director [facility] # [id number] Patient: NUSRAT VERDE [id number] (Continued) Specimen: [id number] Collected: 05/02/15-1003 Received: 05/02/15 (Continued) Procedure Result Verified Site Trichomonas: Vaginal DNA Probe Final (continued) 05/03/15- 1338 The presence or absence of T. vaginalis cannot be used as a test for therapeutic success or failure. * ML - MAIN LAB ([facility]) . END OF REPORT * ML=Testing performed at Main Lab DEPARTMENT OF PATHOLOGY, [facility] [employer] ANDREA [place] [address] Peng Kang M.D. Director [place] # [id number] 32 FASTING 1 sst 1 AFFIRM 33 RESULTS VERIFIED BY REPEAT ANALYSIS 34 RESULTS VERIFIED BY REPEAT ANALYSIS 35 RUN DATE: 01/06/14 [facility] LAB LIVE PAGE 1 RUN TIME: 77[address] [facility] [place], [place] [address] Specimen Inquiry Name: NUSRAT VERDE : [address]: Sd Zabala MD Acct: [id number] Unit: [id number] AGE: 43 Location: [facility] Re01/05/14 SEX: F Status: REG REF SPEC: [id number] ANNALEE: 01/05/14-[address]: Sd Zabala MD REQ: [id number] RECD: 01/05/14 STATUS: COMP _ SOURCE: URINE SPDESC: ORDERED: ELDER/Shy RNA QUERIES: Medent Number [id number] Procedure Result Verified Site Chlamydia Trachomatis RNA Final 01/06/14- 1336 ML NEGATIVE for Chlamydia trachomatis rRNA GC (N. gonorrhoeae) RNA Final 01/06/14- 1336 ML NEGATIVE for Neisseria gonorrhoeae rRNA A negative result does not preclude the presence of a C. trachomatis or N. gonorrhoeae infection because results are dependent on adequate specimen collection, absence of inhibitors, and sufficient rRNA to be detected. Test results may be affected by improper specimen collection, improper storage, technical error, or specimen mixup. Limitations of the Procedure: The Aptima Combo 2 Assay is not intended for the evaluation of suspected sexual abuse or for other medico-legal indications. For those patients for whom a false positive result may have adverse psychosocial impact, the [facility] recommends retesting by a method using an alternate technology. Therapeutic failure or success cannot be determined with the Aptima Combo 2 Assay since nucleic acid may persist following appropriate antimicrobial therapy. Results from the Aptima Combo 2 Assay should be interpreted in conjunction with other laboratory and clinical data available to the clinican. CONTINUED ON NEXT PAGE * ML=Testing performed at Main Lab DEPARTMENT OF PATHOLOGY, [facility] [employer] [place], [place] [address] Peng Kang M.D. Director [facility] # [id number] RUN DATE: 01/06/14 [facility] LAB LIVE PAGE 2 RUN TIME: [address] [facility] [employer] [place], [place] [address] Specimen Inquiry Patient: NUSRAT VERDE [id number] (Continued) Specimen: [id number] Collected: 01/05/14 Received: 01/05/14 (Continued) Procedure Result Verified Site GC (N. gonorrhoeae) RNA Final (continued) 01/06/14- 5565 Performance characteristics for detecting C. trachomatis and N. gonorrhoeae are derived from high prevalence populations. Positive results in low prevalence populations should be interpreted carefully with the understanding that the likelihood of a false positive may be higher than a true positive. END OF REPORT * ML=Testing performed at Main Lab DEPARTMENT OF PATHOLOGY, [address] [place] [address] Peng Kang M.D. Director [facility] # [id number] 36 NO 37 It is recognized that currently available assays for the detection of antibodies to HIV-1 and/or HIV-2 may not detect all infected individuals. HIV antibodies may be undetectable in some stages of the infection and in some clinical conditions. The performance of this assay has not been established for populations of infants or children. Assayed by Chemiluminescence Microparticle Immunoassay on the Siemens Advia Centaur CP. Values obtained with different methods or kits cannot be used interchangeably.The diagnostic specificity of the ADVIA Centaur 1/O/2 Enhanced assay in the low risk population was 99.90% (6052/6058) with a 95% confidence interval of 99.78 to 99.96%. 38 Test Performed by: [place] [address] [employer] Foul Judge: Renato Majano III, M.D. 39 Warning: A positive result is not useful for establishing a diagnosis of syphilis. In most situations, such a result may reflect a prior treated infection; a negative result can exclude a diagnosis of syphilis except for incubating or early primary disease. 40 consistent w/previous 41 patient takes b12 42 Test Performed by: [place] [address] [employer] Foul Judge: Renato Majano III, M.D. 43 FASTING 2 sst 44 Results suggest response to immunization or prior exposure to the virus. -- REFERENCE VALUE -- Vaccinated: Positive (>=1.1 AI) Unvaccinated: Negative (<=0.8 AI) 45 Test Performed by: [place] [address] [employer] Foul Judge: Renato Majano III, M.D. 46 -- REFERENCE VALUE -- Vaccinated: Positive (>=1.1 AI) Unvaccinated: Negative (<=0.8 AI) 47 Test Performed by: [place] [address] [employer] Foul Judge: Renato Majano III, M.D. 48 RESULT: Ectocervical/Endocervical 49 For types 16, 18, 31, 33, 35, 39, 45, 51, 52, 56, 58, 59 and 68. Test Performed by: [facility] - [address] [address] [employer] Foul Judge: Renato Majano III, M.D. 50 RUN DATE: 05/20/13 [facility] LAB LIVE PAGE 1 RUN TIME: 12[address] [place], [place] [address] Specimen Inquiry Name: NUSRAT VERDE : [address]: Marianne Hamlin NP Acct: [id number] Unit: [id number] AGE: 43 Location: [facility] Re05/19/13 SEX: F Status: REG REF SPEC: [id number] ANNALEE: 05/19/138509 [facility] DR: Marianne Hamlin NP REQ: [id number] RECD: 05/19/13 STATUS: SOUT _ ORDERED: IMAGE ANALYSIS, HPV/Thin Prep FINAL DIAGNOSIS Negative for Intraepithelial lesion or Malignancy COMMENTS: Specimen sent to [facility] in [place], [place] on 05/20/13 by [id number] at 1218. Results will be reported separately. A. Ectocervical/Endocervical Specimen Adequacy: Satisfactory of evaluation Transformation zone component identified Scanty epithelial component Patient Information: HPV: High risk HPV DNA testing regardless of pap results. Actual Specimen Date: 05/19/13 Last Menstrual Date: 05/16/13 Spec Date if unknown: 2011 Cautery: N IUD: N Lesion, grossly demonstrate: N ?: N Post Menopausal?: N Hysterectomy?: N Previous Abnormal Pap Smears?:N Signed (signature on file) Tyson DANIEL Coreas (ASCP) 05/20 8014 This Pap test was evaluated with the assistance of the CollabNet[employer] Test Imaging System. Due to cytologic findings at the marketing specialist microscope, comprehensive manual rescreening by a Newsperson may be required. The Pap Smear is a screening test designed to aid in the detection of premalignant and malignant conditions of the uterine cervix. It is not a diagnostic procedure and should not be used as the sole means of detecting cervical cancer. Both false- positive and false- negative reports do occur. Depending on your risk status, a Pap smear shoudl be obtained and evaluated every 1-3 years. END OF REPORT * ML=Testing performed at Main Lab DEPARTMENT OF PATHOLOGY, [facility] [employer] [place], [place] [address] RUN DATE: 05/20/13 [facility] LAB LIVE PAGE 1 RUN TIME: [address] [employer] [place], [place] [address] Specimen Inquiry Patient: NUSRAT VERDE [id number] (Continued) Peng Kang M.D. Director [facility] Permit #[id number] [employer] DEPARTMENT OF PATHOLOGY or Extension 6013 ASSISTANT DIRECTOR OF PLANT OPERATIONS CYTOLOGY REPORT PATIENT: NUSRAT VERDE : 1970 AGE: 42 Y SEX: F ACCT: [id number] PROCEDURE DATE: 05/12/2012 DATE RECEIVED: 05/13/2012 REQUESTING PHYSICIAN: KELY RIVERA NP [place] [facility] [place]. [id number] PATIENT DATA: [id number] SPECIMEN SUBMITTED: * * (HPVII) THIN PREP W/HPV (LSIL/ASC/WERNER) * * CERVICAL/ENDOCERVICAL RELEVANT HISTORY: LMP: 04/21/2012 Contraceptive: OCP : 2 Prev.normal: 06/29 Para: 2 SPECIMEN ADEQUACY SATISFACTORY FOR EVALUATION, ENDOCERVICAL TRANSFORMATION ZONE COMPONENT PRESENT GENERAL CATEGORIZATION NEGATIVE FOR INTRAEPITHELIAL LESIONS OR MALIGNANCY INTERPRETATION/ RESULT REACTIVE CELLULAR CHANGES. RECOMMENDATIONS Follow-up as clinically indicated. COMMENTS Thin Prep Pap tests are examined with an FDA approved location-guidance system. ADDITIONAL COPIES SENT TO: Screened/Rescreened Electronically Signed Sign Out Date/Time: by: by: LUCILLE RIOS MD 05/17/2012 10:12 PATHOLOGIST Note: The Pap smear is a screening test designed to aid in the detection of premalignant and malignant conditions of the uterine cervix. It is not a diagnostic procedure and should not be used as the sole means of detecting cervical cancer. Both false-positive and false-negative reports do occur. 00 UA Pap Smear performed at [employer] Dir: Willa Will MD, [address] [facility] [address] 01 classification and treatment director Celena Morenci Dir: Walker Garsia MD, [address] [facility] [address] 02 BN Lab [place] Dir: Cristian Waite MD, [address] [place] [phone] For inquiries regarding HPV test results, the physician may contact [employer]: [phone] "" 52 [employer] DEPARTMENT OF PATHOLOGY or Extension 5236 ASSISTANT DIRECTOR OF PLANT OPERATIONS CYTOLOGY REPORT PATIENT: NUSRAT VERDE : 1970 AGE: 41 Y SEX: F ACCT: [id number] PROCEDURE DATE: 07/17/2011 DATE RECEIVED: 07/18/2011 REQUESTING PHYSICIAN: DARLENE ANTONIOF [place] [facility] [place]. [id number] PATIENT DATA: [id number] SPECIMEN SUBMITTED: * * (HPVII) THIN PREP W/HPV (LSIL/ASC/WERNER) * * ENDOCERVICAL RELEVANT HISTORY: LMP: 06/23/2011 Contraceptive: PILL : 2 Prev.normal: 07/09/2010 Para: 2 SPECIMEN ADEQUACY SATISFACTORY FOR EVALUATION, ENDOCERVICAL TRANSFORMATION ZONE COMPONENT PRESENT GENERAL CATEGORIZATION NEGATIVE FOR INTRAEPITHELIAL LESIONS OR MALIGNANCY RECOMMENDATIONS Thin Prep Pap tests are examined with an FDA approved location-guidance system. ADDITIONAL COPIES SENT TO: Screened/Rescreened Electronically Signed Sign Out Date/Time: by: by: LUCILLE CASTANON, 07/18/2011 14:19 CT(ASCP) The Pap smear is a screening test designed to aid in the detection of premalignant and malignant conditions of the uterine cervix. It is not a diagnostic procedure and should not be used as the sole means of detecting cervical cancer. Both false-positive and false-negative reports do occur. Performed @ [facility] [address] [place] [address] 53 2 SST; 1 GEN PROBE 54 Index Value: Specimen reactivity relative to the negative cutoff. 55 Negative: Non-reactive by ICMA Positive: Repeatedly reactive by ICMA. Refer to Western Blot confirmatory test for final interpretation. . Physician should job placement counselor the patient about result significance. Patient information should be kept strictly confidential. 56 [employer] DEPARTMENT OF PATHOLOGY or Extension 8458 ASSISTANT DIRECTOR OF PLANT OPERATIONS CYTOLOGY REPORT PATIENT: NUSRAT VERDE : 1970 AGE: 40 Y SEX: F ACCT: [id number] PROCEDURE DATE: 07/09/2010 DATE RECEIVED: 07/10/2010 REQUESTING PHYSICIAN: RO PERDUE NP [place]: [facility] [place]. [id number] PATIENT DATA: [id number] SPECIMEN SUBMITTED: * * (HPVII) THIN PREP W/HPV (LSIL/ASC/WERNER) * * ENDOCERVICAL RELEVANT HISTORY: LMP: 07/01/2010 Contraceptive: BC PILL : 2 Prev.normal: 2007 Para: 2 SPECIMEN ADEQUACY SATISFACTORY FOR EVALUATION, ENDOCERVICAL TRANSFORMATION ZONE COMPONENT PRESENT GENERAL CATEGORIZATION NEGATIVE FOR INTRAEPITHELIAL LESIONS OR MALIGNANCY INTERPRETATION/ RESULT FUNGAL ORGANISMS MORPHOLOGICALLY CONSISTENT WITH CHRISTIN SPECIES. ADDITIONAL COPIES SENT TO: Screened/Rescreened Electronically Signed Sign Out Date/Time: by: by: [facility] MARK CASTANON, 07/11/2010 09:24 CT(ASCP) Thin Prep Pap tests are examined with an FDA-approved location-guidance system (88341). Performed @ [facility] [address] [place] [address] 57 Anion gap measurement may be of limited value in the presence of any alkalosis, especially in a combined acid base disorder. . 58 Note change in reference range as of 03/09/08. The change was based on recommendations from the [place] [employer]. 59 Please note change in reference range effective 07 . 60 A metabolite of Naproxen, O-desmethylnaproxen, has been shown to interfere with the Jendrassik-Sara method for measuring total bilirubin. Samples from patients who have taken Naproxen have shown spurious elevation in total bilirubin levels. 61 Because ethnic data is not always readily available, this report includes an eGFR for both -Americans and non- Americans. The National Kidney Disease Education Program (NKDEP) does not endorse the use of the MDRD equation for patients that are not between the ages of 18 and 70, are , have extremes of body size, muscle mass, or nutritional status, or are non- or non-. According to the National Kidney Foundation, irrespective of diagnosis, the stage of the disease is based on the level of kidney function: Stage Description GFR(mL/min/1.73 m(2)) 1 Kidney damage with normal or decreased GFR 90 2 Kidney damage with mild decrease in GFR 60-89 3 Moderate decrease in GFR 30-59 4 Severe decrease in GFR 15-29 5 Kidney failure <15 (or dialysis) 62 New Reference Range and Interpretation effective 04/22/2002 TnI (ng/ml) INTERPRETATION Less Than 0.06 ng/mL NOT SUPPORTIVE OF DIAGNOSIS OF PR 0.06 - 0.50 ng/ml INDETERMINATE: SUGGEST SERIAL STUDIES IF CLINICALLY INDICATED. Greater than 0.5 ng/mL CONSISTENT WITH DIAGNOSIS OF PR . 63 Recommended INR for Patients on Oral Anticoagulants Prophylaxis 2.0 - 3.0 Treatment of thrombosis 2.0 - 3.0 Prevention of embolism 2.0 - 3.0 Prevention of embolism from prosthetic heart valves 2.5 - 3.5 64 DIAGNOSIS,TREATMENT,AND THERAPY MUST BE BASED ON THE INR VALUE ALONE. 65 PLEASE NOTE NEW REFERENCE RANGE EFFECTIVE 09. 66 If is still suspected, please repeat test after 48 to 72 hours. . 67 Negative: <20 Borderline: 20 - 25 Positive: >25 68 A positive KAPIL result may occur in healthy individuals or be associated with a variety of diseases. See interpre- tation below: . Pattern Antigen Detected Suggested Disease Association Homogeneous DNA(ds,ss,), High titers - SLE (Smooth) Histone Speckled Sm, WARD ATTENDANT, SCL-70, SLE,MCTD,Scleroderma,Sjogrens SS-A/SS-B Nucleolar SCL-70, PM-1/SCL High titers Scleroderma Poly- myositis/Scleroderma Overlap Centromere Centromere PSS w/Crest syndrome variable 69 Negative <1:80 Borderline 1:80 Positive >1:80 70 Negative <5 Equivocal 5 - 9 Positive >9 71 This test was performed using PCR (Polymerase Chain Reaction)/SSOP (Sequence Specific Oligonucleotide Probes) technique. SBT (Sequence Based Typing) and/or SSP (Sequence Specific Primers) may be used as supplemental methods when necessary. Please contact [facility] Customer Service at if you have any questions. . Director of [facility] Laboratory Dr Abdon Hendrix, PhD 31 [email or web address] DEPARTMENT OF PATHOLOGY or Extension 4293 ASSISTANT DIRECTOR OF PLANT OPERATIONS CYTOLOGY REPORT PATIENT: NUSRAT VERDE : 1970 AGE: 39 Y SEX: F ACCT: [id number] PROCEDURE DATE: 05/02/2009 DATE RECEIVED: 05/03/2009 REQUESTING PHYSICIAN: RO PERDUE NP [place] [facility] [place]. [id number] PATIENT DATA: [id number] SPECIMEN SUBMITTED: * * (HPVII) THIN PREP W/HPV (LSIL/ASC/WERNER) * * ENDOCERVICAL RELEVANT HISTORY: LMP: 04/09/2009 : 2 Para: 2 Contraceptive: BC PILL Prev.normal: 2007 SPECIMEN ADEQUACY SATISFACTORY FOR EVALUATION, ENDOCERVICAL TRANSFORMATION ZONE COMPONENT PRESENT GENERAL CATEGORIZATION NEGATIVE FOR INTRAEPITHELIAL LESIONS OR MALIGNANCY ADDITIONAL COPIES SENT TO: Screened/Rescreened by: Electronically Signed by: DANIEL AVILEZ(ASCP) Signed Date and Time: 05/04/2009 15:32 Thin Prep Pap tests are examined with an FDA-approved location-guidance system (72148). Performed @ [facility] [address] [place] [address] "" 73 NEGATIVE FOR GROUP A BETA STREPTOCOCCUS 74 No herpes simplex detected. 75 Index Value: Specimen reactivity relative to the negative cutoff. 76 Negative: Non-reactive by ICMA Positive: Repeatedly reactive by ICMA. Refer to Western Blot confirmatory test for final interpretation. . Physician should job placement counselor the patient about result significance. Patient information should be kept strictly confidential. 77 FASTING 78 [employer] DEPARTMENT OF PATHOLOGY or Extension 4933 ASSISTANT DIRECTOR OF PLANT OPERATIONS CYTOLOGY REPORT PATIENT: NUSRAT VERDE : 1970 AGE: 38 Y SEX: F ACCT: [id number] PROCEDURE DATE: 04/20/2008 DATE RECEIVED: 04/22/2008 REQUESTING PHYSICIAN: DARLENE ANTONIOF LOC[place]: [facility] [place] No. [id number] PATIENT DATA: [id number] SPECIMEN SUBMITTED: * * (HPVII) THIN PREP W/HPV (LSIL/ASC/WERNER) * * ENDOCERVICAL RELEVANT HISTORY: LMP: 04/13/2008 Contraceptive: NONE Prev.normal: 1 1/2 YRS AGO SPECIMEN ADEQUACY SATISFACTORY FOR EVALUATION, ENDOCERVICAL TRANSFORMATION ZONE COMPONENT PRESENT GENERAL CATEGORIZATION EPITHELIAL CELL ABNORMALITY: SEE INTERPRETATION/RESULT INTERPRETATION/ RESULT ATYPICAL SQUAMOUS CELLS OF UNDETERMINED SIGNIFICANCE. RECOMMENDATIONS Follow-up as clinically indicated. Refer to separate report for HPV test results. See www.asccp.org and articles in Am J of Obstet Gynecol 2007 Oct; 197(4), for current consensus recommendation guidelines. ADDITIONAL COPIES SENT TO: Screened/Rescreened by: Electronically Signed by: LUCILLE FREIRE MD PATHOLOGIST Signed Date and Time: 04/25/2008 14:41 Thin Prep Pap tests are examined with an FDA-approved location-guidance system (64859). Performed @ [facility] [address] [place] [address] [place] [address] 79 Negative for high/intermediate risk HPV types 16/18/31/33/35/39/45/51/52/56/58/59/68 80 ---- RUN DATE: 03/17/07 [facility] NMI LIVE PAGE 1 RUN TIME: 1506 Specimen Inquiry RUN USER: INTERFACE [id number] NUSRAT VERDE 36/F <REG REF 03/15> ([id number]) [facility] Mor HEWITT, Nito Mccabe -- Specimen: [id number] SOUT Spec Date: 03/15/[address]: Peng crooks MD Spec Type: SURGICAL P Received: 03/16/07 Copies to: Sd christensen MD SPECIMEN EXCISION OF LESION LEFT POINTER FINGER HISTORY PRE-OP DIAGNOSIS: Pigmented lesion CLINICAL INFORMATION: Irregular shaped dark pigmented lesion, history of basal cell carcinoma GROSS DESCRIPTION The specimen is received in formalin labelled Nusrat Salazarseca, Left Pointer Finger Lesion, and consists of a sotomayor skin fragment measuring 0.3 x 0.2 x 0.2 cm. Submitted entirely, one cassette. DIAGNOSIS Skin, left pointer finger, biopsy - Verruca vulgaris with secondary hyperpigmentation. Signed Electronically by: PENG KANG MD 03/17/07 1506 -- -- DEPARTMENT OF PATHOLOGY, [address] [place] [address] [facility] Permit #[id number] Peng Kang M.D. Director of Laboratories Cristian John II, M.D . Pathologist -- Procedures Date CPT Code Description Status 08/01/2016 Mammogram Completed 06/13/2013 Mammogram Completed 03/05/2011 [facility] Completed 12/11/2010 Mammogram Completed 05/11/2009 Mammogram Completed 10/12/2008 23184 [facility] Completed Encounters Type Date Location Provider CPT E/M Dx Office Visit 12/02/2017 3:30p [facility] Office Brittaney Martines, SCIENTIFIC SOFTWARE DEVELOPER 92729 D69.2 Office Visit 11/24/2017 1:30p [facility] Salome Golden, SCIENTIFIC SOFTWARE DEVELOPER 37043 N95.1 N76.0 H10.89 Office Visit 07/21/2017 8:30a [facility] Sd Zabala M.D. 03967 S05.8x1A M25.531 M25.511 W10.8xxA Office Visit 07/15/2016 3:00p [facility] Marianne Hamlin, MARITZA 04105 N92.0 F41.1 G47.00 Z01.411 Z11.3 Office Visit 05/02/2015 9:00a Main Office Miesha Sebastian, YANDY [address]205 Z01.411 N92.0 L70.0 A60.9 F41.1 Z12.12 Office Visit 04/26/2015 4:50p Main Office Sd Zabala M.D. 57121 N92.0 G47.00 Office Visit 12/07/2014 2:00p [facility] Miesha SebastianYANDY [address]102 V70.3 300.00 780.52 710.2 706.1 054.2 Office Visit 01/05/2014 2:40p Main Office Sd Zabala M.D. 81504 300.00 V74.5 Office Visit 05/19/2013 1:15p Main Office Mariannebeto Hamlin, MARIT[place] 40593 300.09 780.52 784.0 564.00 V25.09 V76.10 V72.31 V04.81 Office Visit 09/21/2012 11:10a [facility] Sd Zabala M.D. 62390 780.52 Office Visit 05/12/2012 11:00a [facility] Kely RiveraNick-Felipa 00790 V72.31 V04.81 Office Visit 11/15/2011 12:45p Main Office Danielle Gusman M.D. 30752 373.2 Office Visit 11/12/2011 2:50p [facility] Sd Zabala M.D. 83012 374.9 Office Visit 07/17/2011 10:00a [facility] [place]IT[place] Feliciano [address] V72.31 Office Visit 11/26/2010 8:40a [facility] Office Sd Zabala M.D. 88034 723.1 710.2 530.81 300.00 311 V76.10 Office Visit 07/09/2010 10:00a [facility] Ro PerdueEugenio 50770 V72.31 V25.01 V25.09 599.72 Office Visit 07/08/2010 4:00p [facility] Wally Umaña M.D. 12906 388.9 Office Visit 06/03/2010 2:40p [facility] Sd Zabala M.D. 21709 530.81 710.9 V41.6 311 300.00 Office Visit 05/02/2010 2:20p [facility] Ez Gray M.D. 33038 723.1 300.00 530.81 311 710.9 Office Visit 02/13/2010 4:00p [facility] Office Sd Zabala M.D. 74844 530.81 311 300.00 Office Visit 01/14/2010 3:00p [facility] Office Sd Zabala M.D. 56733 530.81 553.3 311 710.9 528.9 Office Visit 12/12/2009 3:40p [facility] Office Sd Zabala M.D. 02908 786.59 710.9 300.00 Office Visit 11/06/2009 10:00a [facility] Office Chet Wagner M.D. 39277 780.4 Office Visit 09/26/2009 9:20a [facility] Office Sd Zabala M.D. 92066 300.00 710.9 Office Visit 09/05/2009 9:40a [facility] Sd Zabala M.D. 93234 V70.0 300.00 379.90 719.48 Office Visit 05/22/2009 3:40p Main Office Wally Umaña M.D. 52227 465.9 Office Visit 05/02/2009 3:30p Main Office Ro WoodardEugenio lyons 19103 V72.31 V76.10 V76.2 V13.8 Office Visit 04/20/2009 3:00p Main Office Ro Perdue yandy 52227 616.11 Office Visit 03/05/2009 3:45p Main Office Marilin Hinds, [facility] 97251 041.9 Office Visit 01/09/2009 1:45p [facility] Ro Perdue yandy- 37030 623.8 Office Visit 12/20/2008 8:30p Main Office Ro Perdue yandyFelipa 40876 616.9 Office Visit 11/13/2008 4:15p Main Office Marilin Hinds [facility] 10780 V73.99 Office Visit 10/12/2008 3:10p Main Office Sd Zabala M.D. 82248 V70.0 300.00 599.70 Office Visit 09/25/2008 1:20p [facility] Sd Zabala M.D. 00388 300.00 535.50 Office Visit 09/19/2008 3:50p [facility] Sd Zabala M.D. 72481 462 Office Visit 09/11/2008 3:10p [facility] Sd Zabala M.D. 91881 300.00 Office Visit 09/07/2008 3:30p Main Office Kely Rivera yandy 66284 616.10 Office Visit 04/20/2008 10:00a [facility] Marilin Hinds [facility] 36509 V72.31 780.59 054.9 599.70 Office Visit 03/22/2008 1:15p Main Office Marilin Hinds [facility] 59970 558.9 789.00 Office Visit 12/28/2007 8:10a Main Office Sd Zabala M.D. 09288 780.59 Office Visit 06/08/2007 3:20p Main Office Sd Zabala M.D. 06129 309.0 Office Visit 05/20/2007 12:40p Main Office Sd Zabala M.D. 49740 300.00 Office Visit 02/04/2007 7:30p Main Office Sd Zabala M.D. 69103 238.2 Plan of Care Future Appointment(s):02/11/2018 5:30 pm - Sd Zabala M.D. at Main Ubqsxg6602/02/2018 - Salome Collins [place], NPA69.20 Lyme disease, unspecifiedComments:Doxycycline : Do not consume calcium (milk, cheese, yogurt) within 1-2 hours of taking the doxy. Careful with sunlight, it makes you more sensitive to the sun so use protective clothing and sunscreen if you are outdoors while using this medication and for about a week following its use.G51.0 Fleming's palsyComments:FLEMING'S PALSY TREATMENTThere is no cure for Fleming' s palsy, but treatment can help you to get better faster, especially if you can start treatment within the first few days. However, you may not have to be treated for Fleming's palsy if your symptoms are mild. Talk to your doctor or nurse to ask if you should be treated.Eye care ?? You will need eye treatments if you cannot close your eye. If the cornea, which is the clear protective covering of the pupil, becomes overly dry, there is a risk of permanent eye damage. You can use artificial tears (eye drops) as often as every hour during the day to keep the eye moist. A moisturizing ointment is usually better at night. You can use the ointment during the day, although it will make your vision blurry.If your eye does not close completely, you should protect it during the day with glasses or goggles. Use a patch over your eye at night, but be sure not to use tape on your eyelid since the patch could slip and scratch the cornea.Medications ?? Most people who are diagnosed with Fleming's palsy ( within two to three days of the first symptoms) are treated withsteroids (eg, prednisone) for one week. Steroids, also called glucocorticoids, can reduce swelling and improve your chances of recovering completely. These medicines work best when started early (within three days of the first symptoms). Antiviral medicines (eg, valacyclovir, Valtrex) are sometimes used in conjunction with glucocorticoids, especially when the facial weakness is severe. Some controlled trials have found an added benefit from the use of these agents in patients with very severe facialparalysis. Other forms of treatment are unproven.Facial nerve palsy caused by Lyme disease is treated with antibiotics. Steroids can be used with antibiotics, but there is no proof that steroids are ofbenefit when Lyme disease is the cause of the facial weakness. (See "Patient education: Lyme disease(The Basics)" and "Treatment of Lyme disease", section on 'Facial nerve palsy'.)Monitoring ?? You will need a follow up visit with your doctor or nurse after you start treatment. At this visit, you will have an examination and you can discuss any questions or problems.RECOVERY FROM FLEMING'S PALSYIn general, people whose paralysis is less severe tend to recover more completely. If symptoms begin to improve within the first 21 days, the chances are also good that you will recover and have little or no remaining weakness in the muscles of the face. However, a small number of people are left with moderate to severe muscle weakness that is permanent. (See "Fleming's palsy: Treatment and prognosis in adults".)If the damage to the nerve is severe, it may heal and grow back in a disorganized fashion. When this happens, your ability to control separate facial movements may be lost. For example:When you blink your mouth may twitchSmiling may cause your eye to closeWhen you salivate (eg, before eating), tears may flow from one eyeFollow up :Eye doctor this week We will get you into ENT follow up with MD here next week - sooner for any concerns.AllNew Medication:Valacyclovir HCL 1 gmComments:~B_~U_ Medication Management~b_~u_ Patient Understands medications she's taking? Yes No Are there Barriers to Adherence? Yes No Has the patient been asked about herbal supplements and therapies, and OTC meds? Yes No ~ B_~U_Care Plan~b_~u_1. Patient has been queried about patient's goals/ preferences and functional/lifestyle goals at relevant visits. If relevant, describe: na2. Treatment goals as explained to the patient: above3. Are there barriers to meeting treatment goals? Yes No If Yes, please describe:4. Self-Management goals as described to the patient: Yes NoFollow up:As always, we strongly encourage a healthy diet and making physical activity a part of your every day life. If you have questions about how or where to start, please contact the office.
--- NOTE | 2018-02-06 16:21 | ED ---
Neurological HPI - HPI Summary HPI Summary: This is yayo Coppola documenting for attending Dr. Carol Mascorro MD. The patient is a 47 y/o F presenting to [facility] c/o a feeling of disassociation today. The pt was at [facility] on 01/31/18 for a left facial droop for which she was diagnosed with Fleming's Palsy. She reports that Lyme screening came back positive. She has been taking Doxycycline and using eyedrops and an eye gel for her left eye dryness given difficulty closing all the way. Throughout this past week, she has been feeling more lethargic taking naps 2-3 times a day. She went to the [place] today with daughter when she felt like she was unsure where she was as if she was not there at all and seeing herself from a different viewpoint. She states that her perception got foggy, and she felt uncentered and ungrounded. She reports that her symptoms seem to be controlled, but do not appear to be getting better. She additionally c/o anxiety, dizziness but denies any focal numbness or weakness. She has been nauseous without vomiting. She denies neck pain or stiffness, photophobia. She does reports frontal HERNÁNDEZ that has been ongoing for the past few days that she rates 2/10 currently. She also hx of Sjogren's syndrome. - History of Current Complaint Chief Complaint: EDGeneral Stated Complaint: GENERAL ILLNESS DIZZY Time Seen by Provider: 02/06/18 16:01 Hx Obtained From: Patient Onset/Duration: Gradual Onset, Started days ago, Still Present Timing: Constant Onset Severity: Mild Current Severity: Moderate Headache Location: Parietal (Right), Parietal (Left) Pain Intensity: 4 Pain Scale Used: 0-10 Numeric Character: Impaired Speech, Lethargy Aggravating: Headaches Alleviating: Nothing Associated Signs and Symptoms: Positive: Headache, Dizziness, AMS, Impaired Speech, Nausea/Vomiting - nausea without vomiting, Anxiety. Negative: Neck Pain /Stiffness - Allergy/Home Medications Allergies/Adverse Reactions: Allergies Allergy/AdvReac Type Severity Reaction Status Date / Time latex Allergy Rash Verified 01/31/18 11:46 AN ANTIPRESSANT Allergy Unknown Uncoded 01/31/18 11:46 Reaction Details PMH/Surg Hx/FS Hx/Imm Hx Cardiovascular History: Denies: Hx Hypertension GI History: Reports: Hx Gastroesophageal Reflux Disease - MINOR Sensory History: Reports: Hx Contacts or Glasses - GLASSES Denies: Hx Deafness, Hx Hearing Aid Opthamlomology History: Reports: Hx Contacts or Glasses - GLASSES EENT History: Denies: Hx Deafness Neurological History: Reports: Other Neuro Impairments/Disorders - Fleming's Palsy Psychiatric History: Reports: Hx Anxiety - Cancer History Hx Chemotherapy: No Hx Radiation Therapy: No - Surgical History Surgery Procedure, Year, and Place: BREAST AUGMENTATION 1998. WISDOM TEETH REMOVAL Hx Anesthesia Reactions: No Infectious Disease History: No Infectious Disease History: Denies: Traveled Outside the [place] in Last 30 Days - Family History Known Family History: Positive: Hypertension - Social History Alcohol Use: Daily Alcohol Amount: 1 GLASS WINE/NIGHT Substance Use Type: Reports: None Smoking Status (MU): Never Smoked Tobacco Review of Systems Positive: Other - lethargy, dizziness Positive: Nausea. Negative: Vomiting Neurological: Other - mild speech impairment, mild left facial droop, feeling of disassociation Positive: Headache Positive: Anxious All Other Systems Reviewed And Are Negative: Yes Physical Exam - Summary Physical Exam Summary: GENERAL: Patient is a well developed and nourished female who is lying comfortable in the stretcher. Patient is not in any acute respiratory distress. HEAD AND FACE: Normocephalic EYES: PERRLA, EOMI x 2. EARS: Hearing grossly intact. MOUTH: Oropharynx within normal limits. NECK: Supple, trachea is midline, no adenopathy, no JVD, no carotid bruit. CHEST: Symmetric, no tenderness at palpation LUNGS: Clear to auscultation bilaterally. No wheezing or crackles. CVS: Regular rate and rhythm, S1 and S2 present, no murmurs or gallops appreciated. ABDOMEN: Soft, non-tender. Bowel sounds are normal. No abdominal abnormal pulsations. EXTREMITIES: Full ROM in all major joints, no edema, no cyanosis or clubbing. NEURO: Alert and oriented x 3. No acute neurological deficits. Speech is normal and follows commands. Cranial nerves II-XII grossly intact except for cranial nerve VII on the left side due to Fleming's Palsy, Kernig and Brudzinski negative SKIN: Dry and warm Triage Information Reviewed: Yes Vital Signs On Initial Exam: Initial Vitals Temp Pulse Resp BP Pulse Ox 97.9 F 60 16 112/79 99 02/06/18 14:11 02/06/18 14:11 02/06/18 14:11 02/06/18 14:11 02/06/18 14:11 Vital Signs Reviewed: Yes Diagnostics - Vital Signs Vital Signs Temp Pulse Resp BP Pulse Ox 02/06/18 15:43 99 F 54 16 122/81 100 02/06/18 14:11 97.9 F 60 16 112/79 99 - Laboratory Lab Statement: Any lab studies that have been ordered have been reviewed, and results considered in the medical decision making process. Re-Evaluation - Re-Evaluation First Eval Re-Evaluation Time: 17:15 Change: Unchanged Comment: I spoke with the pt about following up with neurology as suggested by Dr. Carlin and Dr. Orellana at [facility]. Pt is agreeable with this plan. Course/Dx - Course Course Of Treatment: 47-year-old female who presents to the emergency room but nonspecific complaints and is recently diagnosed with Fleming's palsy most likely secondary to Lyme's disease. She is currently on doxycycline. On physical examination, patient is completely neurologically intact and has no meningismus sign concerning for meningitis. Patient is currently being treated appropriately for Lyme's an Fleming's palsy. I dicussed the case with the neurologist Dr. Orellana to see if there is anything additional I should consider given the known diagnosis and since I told her that patient is non- focal and has no meningimus on exam then patient would be safe to discharge and instructed to continue her doxycycline and follow-up patient. I did discuss this with the patient and she agrees. Patient is comfortable going home and will follow up as planned. Strict return precautions given - Diagnoses Provider Diagnoses: Fleming's palsy, Lyme disease - Physician Notifications Discussed Care Of Patient With: Kelsey Orellana - I also consulted Dr. Carlin at 17:00. Time Discussed With Above Provider: 16:41 Instructed by Provider To: Other - Consult infection and disease services. Discharge - Sign-Out/Discharge Documenting (check all that apply): Patient Departure - Discharge Plan Condition: Stable Disposition: HOME Patient Education Materials: Lyme Disease (ED), Fleming Palsy (ED) Referrals: Kelsey Orellana MD [Medical Doctor] - 2 Days Sd Zabala MD [Primary Care Provider] - 2 Days Additional Instructions: Follow up with Dr. Orellana, neurology, in 2-3 days. Follow up with your primary care provider in 2-3 days. Return to the emergency department for any new or worsening symptoms. - Billing Disposition and Condition Condition: STABLE Disposition: Home
[2018-02-06 18:18] VITALS: BP 120/80
== END 2018-02-06 18:16 | disposition home or self-care (01) ==
LOC: ED 13:59
DX: G51.0 Bell's palsy (principal); A69.20 Lyme disease, unspecified; R41.82 Altered mental status, unspecified; R11.2 Nausea with vomiting, unspecified; R51 Headache; R42 Dizziness and giddiness; F41.9 Anxiety disorder, unspecified; Z88.8 Allergy status to other drugs, medicaments and biological substances; Z91.040 Latex allergy status; Z82.49 Family history of ischemic heart disease and other diseases of the circulatory system
CPT/HCPCS: 99282

== ENCOUNTER → 2018-02-17 10:48 | Day surgery (SDC) | payer OTHER ==
[2018-02-17 12:48] LABS: Body Fluid Source Cerebral Spinal
--- NOTE | 2018-02-18 02:45 | PM ---
DATE OF SERVICE: 02/17/18 HISTORY: I had the pleasure of seeing Ms. Nusrat Verde at [facility] today. Ms. Verde was referred to Dr. Uribe after an episode of disorientation, dizziness and headache when she was at the [employer] last week. She subsequently went to the emergency room and was then referred to Dr. Uribe for further evaluation of her neurological episode. She has had imaging of her head showing no major abnormalities and is now undergoing rule out of Lyme disease as well as pseudotumor cerebri. PAST MEDICAL HISTORY: In brief, her past medical history is significant only for Sjogren's syndrome and insomnia. PAST SURGICAL HISTORY: The patient denies any prior surgical history. MEDICATIONS: Xanax p.r.n. ALLERGIES: None. FAMILY HISTORY: Noncontributory. ROS: The patient denies any focal neurological deficits such as weakness or numbness in her lower extremities. She denies use of anticoagulants currently or history of coagulopathies. She denies any recent fever, chills or malaise. IMAGING: MRI of the brain is within normal limits and did not detect any abnormalities. PROCEDURE NOTE: The risks and benefits of the lumbar puncture were discussed with the patient, who verbalized understanding and elected to proceed. The risk including to but not limited to bleeding, bruising, infection, nerve injury, as well as headache were discussed. LUMBAR PUNCTURE: The patient was brought to the minor procedure room in the same- day surgery area. The procedure along with the risk and benefits as previously outlined were discussed with the patient and informed consent was obtained. The patient was placed in the right lateral recumbent position on the bed. Her back was prepped and draped in the usual sterile fashion. The L3- L4 interspace was approximated. 2 cc of 1% lidocaine plain was used to anesthetized the skin and subcutaneous tissues. A time-out was then performed. Subsequently, a 20 gauge introducer along with a 25 gauge Pencan needle was used to access the intrathecal space. Free flowing clear CSF was seen from the Pencan needle. Opening pressure was measured to be 11 cm of water. Subsequently a total of 10 cc of CSF was aspirated slowly from the intrathecal space over a period of 5 minutes and sent to the lab for further testing as ordered per Dr. Uribe. The patient tolerated the procedure well with no focal neurological deficits, paresthesias or numbness and with stable vital signs. There was no neuraxial heme. There were no paresthesias. The site was dressed with a Band-Aid after the procedure. The patient was given the usual discharge instructions following the lumbar puncture to avoid tub bathes, hot tubs or swimming. She was advised to rest today as well as to ensure proper hydration and normal amount of caffeination. She was advised to contact the operating room staff or the Pain Clinic should she experience any symptoms of headache or signs of infectious processes at her lumbar puncture site. She did verbalize understanding of this. She was subsequently discharged in stable condition with no new deficits. Incidentally she did note improvement of her headache after the procedure. She will follow up with me as needed. [id number]/[facility] #: [id number] MAHENDRA
[2018-02-19 01:16] LABS: Lyme Disease Source CSF
== END | disposition home or self-care (01) ==
LOC: OR 10:48
PROVIDERS: ATTEND Anesthesiology Pain Medicine
DX: A69.22 Other neurologic disorders in Lyme disease (principal); R41.82 Altered mental status, unspecified; G51.0 Bell's palsy; R53.83 Other fatigue; R51 Headache; M26.602 Left temporomandibular joint disorder, unspecified; R42 Dizziness and giddiness
CPT/HCPCS: 36415; 62270; 82945; 84157; 86592; 87070; 87205; 87476; 87798; 88112; 89051

== ENCOUNTER 2019-04-28 07:58 | Day surgery (SDC) | payer OTHER ==
[~2019-04-28 07:58] MED LIST: Buffered Lidocaine 1% SYRIN* 1 ML/SYRINGE INTRADERM ONE; Lactated Ringers 1000 ML Bag* 1,000 ML IV SCH
[2019-04-28] MEDS ORDERED: ceFAZolin 2 GM PREMIX in ORs 2 GM/50 ML BAG ONE (08:13)
[2019-04-28] MEDS ORDERED: Famotidine IV* 10 MG/ML 2 ML (20 mg) ONE (08:13)
[2019-04-28] MEDS ORDERED: Lidocaine 2% PF * 5 ML VIAL ONE (08:25)
[2019-04-28] MEDS ORDERED: Propofol* 10 MG/ML 20 ML BTL ONE ×2 (08:25→10:13)
[2019-04-28] MEDS ORDERED: Ketorolac INJ* 30 MG/ML 1 ML VIAL ONE (08:25)
[2019-04-28] MEDS ORDERED: Dexamethasone IV* 4 MG/ML 1 ML (4 MG) ONE ×2 (08:25→09:21)
[2019-04-28] MEDS ORDERED: Ondansetron INJ* 2 MG/ML VIAL ONE (08:25)
[2019-04-28] MEDS ORDERED: fentaNYL* 50 MCG/ML 2 ML VIAL (100 MCG VIAL) ONE (08:26)
[2019-04-28] MEDS ORDERED: Midazolam* 1 MG/ML 5 ML VIAL (5 MG) ONE (08:26)
[2019-04-28] MEDS ORDERED: KETAMINE HCL* 50 MG/ML 10 ML VIAL ONE (08:26)
[2019-04-28] MEDS: Famotidine IV* 10 MG/ML 2 ML (20 mg) IV ONE ×2 (08:34→08:40)
[2019-04-28] MEDS ORDERED: Lidocaine 1% INJ* 10 MG/ML 30 ML SDV ONE (09:21)
[2019-04-28] MEDS ORDERED: Bupivacaine 0.5% SDV PF* 30ML VIAL ONE (09:21)
[2019-04-28] MEDS ORDERED: fentaNYL* 50 MCG/ML 2 ML VIAL (100 MCG VIAL) IV PRN (10:08)
[2019-04-28] MEDS ORDERED: Ondansetron INJ* 2 MG/ML VIAL IV PRN (10:08)
[2019-04-28] MEDS ORDERED: Naloxone* 0.4 MG/ML 1 ML VIAL IV PRN (10:08)
[2019-04-28] MEDS ORDERED: EPHEDrine (Pressors)* 50 MG/ML VIAL ONE (10:53)
[2019-04-28 12:25] VITALS: BP 104/72
--- NOTE | 2019-04-28 21:38 | OP ---
DATE OF OPERATION: 04/28/19 [facility] DATE OF : 68 SURGEON: Tung Orellana DPM. MANAGER LAW: None. ANESTHESIA: MAC with local. PRE-OP DIAGNOSES: 1. Severe painful bunion deformity, right foot. 2. Painful second right hammertoe, right foot. POST-OP DIAGNOSES: 1. Severe painful bunion deformity, right foot. 2. Painful second right hammertoe, right foot. OPERATIVE PROCEDURE: 1. Bunionectomy with closing base wedge first metatarsal osteotomy in the right foot. 2. Correction of second right hammertoe with PIPJ arthrodesis, extensor digitorum longus tendon lengthening and MTPJ arthrotomy with K-wire fixation, second digit, right foot. PATHOLOGY: Degenerative bone. HEMOSTASIS: Pneumatic ankle tourniquet. ESTIMATED BLOOD LOSS: Less than 20 cc. MATERIALS: Two 3.0 mm Tatyana cannulated screws and a smooth 0.062 inch K-wire. INDICATIONS: The patient with chronic right forefoot pain and deformity with severe bunion deformity, pain on range of motion and while wearing shoes, has been dorsally contracted. Second right digit with pain under the second metatarsal head. The patient opts for surgery at this time to attempt to decrease the pain and improve her function. DESCRIPTION OF PROCEDURE: The patient was brought to the operating room, placed on the operating table in the supine position. The anesthesia department administered IV sedation and peripheral nerve block was performed about the right foot with a 1:1 mixture of 1% lidocaine plain and 0.5% Marcaine plain. The right foot was then prepped and draped in the usual fashion. The right foot was then exsanguinated with an Esmarch bandage and a pneumatic ankle tourniquet was inflated to 250 mmHg over a well-padded right ankle. Attention was directed to the dorsomedial aspect of the right great toe joint where a curvilinear incision was made. Dissection was carried through the subcutaneous tissues with care being taken to retract neurovascular structures and cauterize superficial bleeders as needed. A linear periosteal and capsular incision was made with release medially at the metatarsophalangeal joint as well. Reflection allowed for exposure of the joint in the metatarsal and was noted to be hypertrophic bone at the medial aspect of the first metatarsal head. McGlamry elevator was needed to free plantar lateral adhesions in the great toe joint. Dissection was carried into the first intermetatarsal space where traditional lateral release was performed., releasing the conjoined tendon of the adductor hallucis, pushing the lateral capsule, the lateral fibular sesamoid ligament and extensor hallucis brevis tendon was identified and transected as well. This allowed for release of all lateral contractures. The medial eminence of the first metatarsal head was resected with a sagittal saw in a manner to preserve the sagittal groove. Next, a closing base wedge osteotomy was performed with the proximal medial hinge maintained. The osteotomy was reduced with temporary fixation with a bone clamp and the position was checked with a C-arm, and using standard technique, two of the 3.0 mm cannulated Tatyana screws were placed across the osteotomy site with guidewires. Temporary fixation was removed. The osteotomy was inspected and found to be solid with no detectable motion or gapping. Screws were found to be 2 fingers tight and the correction and fixation was assessed with the C-arm. Power bur was used to smooth rough edges about the first metatarsal head and the surgical site was flushed with copious amounts of normal sterile saline. Medial capsulorrhaphy was performed resecting redundant medial capsule. Next, while holding the hallux in the rectus position, the periosteal and capsular tissues were reapproximated and secured with 2-0 Vicryl. Subcutaneous tissues were reapproximated with 4-0 Vicryl and skin was closed with 5-0 nylon. Attention was directed to the second digit where a curvilinear incision was made for exposure of the PIPJ and the MTPJ. The extensor dia was released. Transverse tenotomy and capsulotomy were performed at the PIPJ, and prior to this, a Z extensor tendon lengthening procedure was performed to the extensor tendon over the metatarsophalangeal joint. The capsule at the metatarso- phalangeal joint was released, and McGlamry elevator was needed to free plantar capsular adhesions as the joint was in a significant contracted position. The proximal phalangeal head was resected as well as the adjacent base in the phalanx. The power bur was used to smoothen rough edges. Surgical site was flushed with copious amounts of normal sterile saline. Next, K-wire was determined to be necessary to hold the digit in the corrected position as well as reduce contractures at the metatarsophalangeal joint. A smooth 0.06 inch K- wire was driven to the base of the middle phalanx to the tip of the digit retrograde through the proximal phalanx across the metatarsophalangeal joint under guidance with a C- arm. The wire was then bent, cut, and capped. The surgical site was flushed with copious amounts of normal sterile saline. The capsular and tendinous structures were reapproximated and secured with 4-0 Vicryl. Subcutaneous tissues were reapproximated with 4-0 Vicryl and skin was closed with 5-0 nylon. 12 mg of dexamethasone phosphate was infiltrated about the surgical sites and the incisions were dressed with Xeroform gauze and a sterile mildly compressive dressing was applied consisting of 4x4 gauze, Cherry, and a light Coban wrap. The pneumatic ankle tourniquet was deflated about the right ankle, and after a few moments, a hyperemic response was noted in the majority of the digits with the great toe and the second digit. After a few more minutes, cap refill was less than 5 seconds to all digits. Having appeared to have tolerated the procedures and anesthesia well, the patient was transported via cart from the operating room to Recovery in satisfactory condition with capillary refill less than 5 seconds to all digits of the right foot. [id number]/[facility] #: [id number] MAHENDRA
== END 2019-04-28 12:24 | disposition home or self-care (01) ==
LOC: OREAST 07:58
PROVIDERS: ATTEND Podiatrist Foot Surgery
DX: M21.611 Bunion of right foot (principal); M20.41 Other hammer toe(s) (acquired), right foot; K21.9 Gastro-esophageal reflux disease without esophagitis; F41.9 Anxiety disorder, unspecified; L94.8 Other specified localized connective tissue disorders
CPT/HCPCS: 76000; 88304; 88311; C1713; C1776; J0690; J1100; J1885; J2250; J2405; J2704; J3010; J3490